=== PATIENT | male | born 1955 | race African-American/Black ===

== ENCOUNTER 2020-01-21 12:33 | Inpatient (IN) | payer OTHER ==
[~2020-01-21 12:33] MED LIST: Dexamethasone 20 MG/5 ML VIAL ONE; Glycopyrrolate 0.2 MG/ML 5 ML SYRINGE ONE; Iopamidol-370 76% 500 ML 1 ML ONE; Lidocaine 1% PF 5 ML VIAL ONE; Ondansetron PF 4 MG/2 ML Vial ONE; PHENYLEPHRINE-NS 100 MCG/ML 10 ML SYRINGE ONE; PROPOFOL 200 MG/20 ML VIAL ONE; Rocuronium Bromide 10 MG/ML (10ML VIAL) ONE; Succinylcholine Chloride 20 MG/ML 10 ml SYRINGE FS ONE
[2020-01-21] MEDS ORDERED: Fentanyl 100 MCG/2 ML VIAL ONE ×4 (12:39→18:44)
[2020-01-21] MEDS ORDERED: Ondansetron PF 4 MG/2 ML Vial ONE (12:41)
--- NOTE | 2020-01-21 12:50 | RAD ---
Exam: Single view of the pelvis HISTORY: Pelvic and hip pain after fall COMPARISON: None FINDINGS: A single view the pelvis shows no evidence of acute fracture or dislocation. Degenerative c hanges are seen in the lumbar spine. No degenerative changes seen in either hip. IMPRESSION: No evidence of acute osseous abnormality.
[2020-01-21 12:51] LABS: #Basophils 0.1 thou/uL (0.0-0.2); #Eosinphils 0.1 thou/uL (0.0-0.7); #Lymphocytes 1.5 thou/uL (1.20-3.40); #Monocytes 0.5 thou/uL (0.11-0.59); #Neutrophils 6.6 thou/uL (1.40-6.50); %Basophils 0.7 % (0.0-1.0); %Eosinophils 1.4 % (0.0-10.0); %Lymphocytes 17.2 % (21.0-51.0); %Monocytes 5.8 % (0.0-10.0); Hemoglobin 13.8 g/dL (14.0-18.0); Mean Corpuscular HGB CONC 34.2 g/dL (32.0-36.0); Mean Corpuscular Hemoglobin 34.9 pg (27.0-31.0); Mean Platelet Volume 7.3 fL (7.4-10.4); Platelet Count 230 thou/uL (130-400); RBC Distribution Width 11.9 % (11.5-14.5); Red Blood Cell (RBC) Count 3.94 mill/uL (4.70-6.10); White Blood Cell (WBC) Count 8.7 thou/uL (4.8-10.8)
--- NOTE | 2020-01-21 12:51 | RAD ---
EXAM: Single view of the chest HISTORY: Chest pain after fall from a bed of a truck COMPARISON: None FINDINGS: Single view of the chest shows a normal sized cardiomediastinal silhouette. There is no tc dence of consolidation, mass, or pleural effusion. The bones are unremarkable IMPRESSION: No evidence of acute cardiopulmonary disease
[2020-01-21 12:57] LABS: INR-International Normal Ratio 1.2; PTT 23.8 sec (22.9-36.1); Prothrombin Time 14.9 sec (12.0-14.7)
--- NOTE | 2020-01-21 13:00 | CT ---
CT BRAIN WITHOUT CONTRAST: Date: 01/21/2020 HISTORY: Level II trauma. Loss of consciousness. Fell from tree. FINDINGS: No evidence of acute infarct, hemorrhage, midline shift, or abnormal extra-axial fluid collections ar e seen. The ventricular size is normal and the basilar cisterns are patent. The bony calvarium is int act. There is opacification of the left posterior ethmoid air cells. The remainder of the visualized paranasal sinuses and mastoid air cells are clear. IMPRESSION: No CT evidence of acute intracranial process. Discussed over the phone with ER physician, Dr. Capps, at 1255 hours. CODE CR.
[2020-01-21 13:07] LABS: ALT (SGPT) 117 U/L (8-55); AST (SGOT) 198 U/L (5-34); Albumin 3.4 g/dL (3.5-5.0); Alkaline Phosphatase 104 U/L (40-110); Anion Gap 14 mmol/L (10-20); BUN (Urea Nitrogen) 15 mg/dL (8.4-25.7); Bilirubin, Total 0.4 mg/dL (0.2-1.2); Calc. Creatinine Clearance 0 mL/min (70-130); Calcium 8.9 mg/dL (7.8-10.44); Carbon Dioxide 18 mmol/L (22-29); Chloride 105 mmol/L (98-107); Estimated GFR-MDRD 59; Globulin 4.2 g/dL (2.4-3.5); Glucose 102 mg/dL (70-105); Potassium 4.1 mmol/L (3.5-5.1); Protein, Total 7.6 g/dL (6.0-8.3); Sodium 133 mmol/L (136-145)
--- NOTE | 2020-01-21 13:15 | CT ---
Exam: CT cervical spine without contrast HISTORY: Trauma. Pain. Level 2 trauma. Patient fell from a tree. COMPARISON: None FINDINGS: No craniocervical dissociation. Appropriate alignment of the lateral masses of C1 and C2. Intact odon toid process Appropriate alignment of the facets. Soft tissue neck structures: No mass, lymphadenopathy or hematoma. No prevertebral soft tissue swelli ng. Upper mediastinum and lung apices: Unremarkable Central spinal canal: Multilevel degenerative change with loss of disc space height, sclerosis and os teophyte formation. Severe loss of disc space height at C3-C4, C5-6 and C6-C7. Moderate severe loss of disc space height at C3-4-C5. Straightening of cervical lordosis may be due to patient position, m uscle spasm or cervical collar. Current study does not assess for ligamentous injury. Moderate to severe central canal stenosis at C3-C4, C4-C5, C5-C6 and moderate central canal stenosis at C6-C7 due to degenerative change. Technique limits evaluation. Vertebral bodies: Cervical spine vertebral body height is maintained. No vertebral body fracture. The re is a fracture involving the right foramen transversarium at C3-4. There is also a fracture involving the junction of the right lamina and spinous process at C4. There also appears be a fractur e involving a right-sided osteophyte along the C4 vertebral body. IMPRESSION: 1. No right C4 foramen transversarium fracture. Right C4 lamina fracture near its junction with the s pinous process. There is a fracture involving osteophyte along the anterior inferior aspect of the C4 vertebral body. 2. Multilevel degenerative changes of the cervical spine with significant central canal stenosis and significant neural foraminal narrowing. Technique limits evaluation. Results of study discussed with Dr. Capps 01/21/2020 at 1:05 PM Code CR
--- NOTE | 2020-01-21 13:15 | CT ---
EXAM: CT face without contrast HISTORY: Fall from tree with facial trauma COMPARISON: None TECHNIQUE: Multiple contiguous axial images were obtained and a CT of the face without contrast. Sagi ttal and coronal reformats were performed. FINDINGS: There are chronic healed fractures of the bilateral nasal bones. No acute facial fractures are identified. There is left facial soft tissue swelling with air in the left facial soft tissues. No radiopaque foreign body is seen. The globes and retrobulbar soft tissues are unremarkable . The visualized paranasal sinuses are well aerated without evidence of opacification. The mastoid air cells are well aerated. Visualized intracranial structures are unremarkable. IMPRESSION: No evidence of facial fracture Dr. Capps notified of findings at 1:13 PM on 01/21/2020.
[2020-01-21] MEDS ORDERED: Dexamethasone 10 MG/ML VIAL ONE (13:26)
--- NOTE | 2020-01-21 13:33 | CT ---
CT THORAX WITH CONTRAST CT ABDOMEN WITH CONTRAST CT PELVIS WITH CONTRAST CT THORACIC SPINE WITH CONTRAST CT LUMBAR SPINE WITH CONTRAST: (Trauma protocol) DATE: 01/21/2020 HISTORY: Trauma to the chest, abdomen, and pelvis: 61-year-old male status post fall from tree. Dr. Melara verbally gave this trauma protocol report to Dr. Capps at 1:30 PM 01/21/2020. TECHNIQUE: IV administration of iodinated contrast media. No oral contrast media. Single phase scans of thorax, abdomen, and pelvis. Sagittal reconstructions of thoracic and lumbar spine. FINDINGS: Lungs: No contusion. Stellate, spiculated moderate size lesion in superior segment of right lower lob e, with extensive air bronchograms. On prior chest CT of 07/11/2013, this was a large cavitating consolidation. Pleura: No pneumothorax or hemothorax. Thoracic aorta: No dissection or rupture. Mediastinum: No hematoma. Abdomen and pelvis: Liver: No laceration Spleen: No laceration Pancreas: No surrounding fluid or fat stranding. Kidneys: No hydronephrosis or laceration. Bladder: No gross evidence of rupture. Kerns catheter present. Abdominal aorta: No dissection or rupture. Small bowel: No dilation. Colon: No adjacent fat stranding. Free air: None. Free fluid: None. Skeleton: Ribs: No grossly displaced acute fracture. Sternum: No grossly displaced acute fracture. Thoracic spine: No acute compression fracture. Lumbar spine: No acute compression fracture. Pelvis: No grossly displaced acute fracture. No dislocation. IMPRESSION: 1. No evidence of acute traumatic injury within the thorax, abdomen, or pelvis. 2. Moderately large pulmonary scar in superior segment of right lower lobe, representing sequela of p rior active tuberculosis or cavitating pneumonia (prior cavitating consolidation) in that location.
--- NOTE | 2020-01-21 13:47 | CT ---
Exam: CT angiogram of the neck HISTORY: C4 fracture at the level of foramen transversarium. Patient is unable to move extremities. COMPARISON: None Correlation: CT cervical spine 01/21/2020 TECHNIQUE: CT angiogram the neck is performed in the axial plane. Three-dimensional reformatted image s are submitted for interpretation. FINDINGS: No pathologic enhancement of the brain parenchyma. There is evidence of multilevel periodontal disease. Adequate aeration of the sinuses and mastoid air cells Soft tissue neck structures: Aerodigestive tract is patent. No mucosal abnormality. No obvious masses in the oral cavity. Midline fatty raphae of the tongue is preserved. Epiglottis is normal caliber. Preepiglottic fat is preserved. Symmetric attenuation the paraspinal muscles. Symmetric attenuation of the salivary glands. Appropriate attenuation of the thyroid gland No evidence of lymphadenopathy by size criteria. There is a small amount of edema anterior to the C3, C4 and C5 levels with associated paravertebral s oft tissues. On the current examination there does appear to be severe central canal stenosis at the C3-C4 level. There does appear to be increased soft tissue density along the anterior epidural space at C3, C4, and C5 which may in part be due to disc material. However, the possibility of the anterior epidural h ematoma cannot be excluded. There is incompletely evaluated spiculated opacity in the right upper lobe measuring 2.[address] ANGIOGRAM: Aorta: Appropriate enhancement and luminal diameter Right carotid: Appropriate enhancement and luminal diameter of the carotid artery origin, innominate artery,, common carotid artery, carotid bifurcation and internal carotid artery. Mild narrowing involving the carotid bifurcation and proximal internal carotid artery due to calcified and noncalcif ied plaque. Left carotid: Appropriate enhancement and luminal diameter of the origin of the left carotid artery, common carotid artery, carotid bifurcation and internal carotid artery. Subclavian arteries: Patent and symmetric Vertebral arteries: Left vertebral artery is patent throughout its course in the neck. There is appro priate enhancement and luminal diameter of the right vertebral artery is the level the right foramen transversarium. Distal foramen transversarium, there is lack of contrast opacification compat ible with thrombosis secondary to dissection. There is recanalization of the right vertebral artery as it enters the foramen magnum, likely due to collateral flow. IMPRESSION: 1. Right vertebral artery dissection at the level of fracture. There is thrombosis the lack of contra st opacification throughout the cervical right vertebral artery starting at the C4 foramen transversarium. 2. Significant central canal stenosis at C3-C4, C4-C5 and C5-C6 which may in part be due to degenerat manny change. However, anterior epidural hematoma cannot be excluded. There is severe central canal stenosis at C4-C5 C5-C6. There is prevertebral soft tissue swelling C3-C5. Results of the study discussed with Dr. Capps 01/21/2020 at 1:46 PM Code CR Transcribed Date/Time: 01/21/2020 1:59 PM
[2020-01-21] MEDS ORDERED: Adacel (T-DAP) 0.5 ML SYRINGE ONE (13:56)
[2020-01-21 14:07] LABS: Bilirubin Negative (Negative); Blood, Urine Negative (Negative); Clarity Clear (Clear); Glucose, Urine (Dipstick) Normal (Negative); Ketone, Urine Negative (Negative); Leukocyte Negative Leu/uL (Negative); Nitrite Negative (Negative); Protein, Urine (Dipstick) Negative (Neg-Trace); Specific Gravity, Urine 1.025 (1.002-1.036); Urobilinogen Normal mg/dL (Less than 2); pH, Urine 5.5 (5.0-9.0)
[2020-01-21 14:26] LABS: Amphetamine Not Detected (NotDetected); Barbiturates Screen Not Detected (NotDetected); Benzodiazepine Screen Not Detected (NotDetected); Cocaine Metabolite Screen Detected (NotDetected); Medtox Control Line Valid? VALID (VALID); Medtox Reader # READER 4; Methadone Not Detected (NotDetected); Methamphetamine Not Detected (NotDetected); Opiate Screen Not Detected (NotDetected); Oxycodone Screen Not Detected (NotDetected); Phencyclidine (PCP) Not Detected (NotDetected); THC/Cannabinoid Screen Not Detected (NotDetected); Tricyclic Screen Detected (NotDetected)
--- NOTE | 2020-01-21 15:27 | MRI ---
Exam: MRI cervical spine without contrast HISTORY: Recent fall. Patient is unable to move his extremities.. COMPARISON: None Correlation: CT cervical spine 01/21/2020; CT angiogram of the neck 01/21/2020 FINDINGS: There is T1 marrow signal hypointensity at C4 with subtle T2 hyperintensity that suggests edema seco ndary to fracture. There is intrinsic T1 and T2 hyperintensity at C5, superior endplate of C6 and C7 likely representing normal marrow. Remaining cervical and upper thoracic vertebral body marrow sig nal intensity is hypointense without significant associated STIR hyperintensity. Correlate for anemia or a marrow infiltrative process. There is prevertebral soft tissue swelling from C2 through C 7. There is T2 and STIR hyperintensity with edematous changes involving the left paraspinal muscles/left neck as well as the posterior midline paraspinal soft tissues. There is evidence of liga mentous injury involving the intraspinous ligaments at C2-C3, C3-C4, C4-C5 and C5-C6. There is abnormal T2 and STIR hyperintensity involving the cervical cord starting at the mid C3 level and extending inferiorly to the inferior aspect of C5. There is a small focus of T2 hyperintensity in the cervical cord at the C4 level (sagittal images 6, series 3 and series 5). On the axial gradien t echo sequence there is associated hypointensity favoring intramedullary hemorrhage. In the anterior epidural space, there is hypointensity at C3, C4, C5 suggesting epidural hematoma/blo od. C2-C3: Broad-based disc bulge. Mild central canal stenosis. Neural foramina are patent. C3-C4: Desiccation with severe loss of disc space height. Broad-based disc osteophyte complex and epi dural hematoma result in severe central canal stenosis. Moderate to severe bilateral neural foraminal narrowing. C4-C5: Broad-based disc bulge, epidural hematoma result in severe central canal stenosis. Severe bila teral neural foraminal narrowing. C5-C6: Broad-based disc osteophyte complex and epidural hematoma result in moderate to severe central canal stenosis. Severe bilateral neural foraminal narrowing. C6-C7: Desiccation with mild loss of disc space height. Broad-based disc osteophyte complex results i n mild central canal stenosis. Moderate to severe bilateral neural foraminal narrowing. C7-T1: Desiccation without severe loss of disc space height. There is a left paracentral disc herniat ion. Mild central canal stenosis. Moderate bilateral neural foraminal narrowing. IMPRESSION: 1. Extensive prevertebral edema and swelling from C2 through C7. 2. Anterior epidural hematoma from C3 through C5. 3. Severe central canal stenosis at C3-C4 and C4-C5 secondary to broad-based disc bulge, epidural hem atoma. 4. Long segment edema involving the cervical cord from C3 through C6. There is a small focus of intra medullary hemorrhage at C4. 5. Posttraumatic changes involving the left neck as well as the posterior midline paraspinal musculat ure. There is evidence of ligamentous injury as described above. Transcribed Date/Time: 01/21/2020 3:38 PM
--- NOTE | 2020-01-21 15:32 | MRI ---
MRI BRAIN WITHOUT CONTRAST: Date: 01/21/2020 HISTORY: Cervical spine fracture, fall, paralysis. FINDINGS: Correlation is made with the CT scan from same date. No restricted diffusion is seen. No evidence of infarct, hemorrhage, midline shift, or abnormal extra -axial fluid collections are noted. The ventricular size is appropriate and the basilar cisterns are patent. IMPRESSION: No evidence of acute intracranial process. POS: AH
[2020-01-21] MEDS ORDERED: Bacitracin Zinc Ointment 30 gm TUBE ONE (15:43)
[2020-01-21] MEDS ORDERED: Sodium Chloride 0.9% 40 ML ONE (15:57)
[2020-01-21] MEDS ORDERED: Thrombin 5000 UNITS/5 ML VIAL ONE (16:02)
[2020-01-21] MEDS ORDERED: Phenylephrine 10 MG/ML VIAL ONE (16:30)
--- NOTE | 2020-01-21 16:49 | HP ---
REQUESTING PHYSICIAN: Dr. Capps. ATTENDING SURGEON: Dr. Whitt. CONSULTATIONS: Neurosurgery, Dr. Maldonado. HISTORY OF PRESENT ILLNESS: The patient is a 64-year-old man who was brought to the emergency department as a level 2 trauma activation after reportedly falling from a tree while cutting limbs. The patient fell approximately 6 to 10 feet landing reportedly on his head and neck. The patient reportedly could not move his arms or legs, was conscious by the time the EMS was brought there. He was evaluated and examined in the emergency department and noted to have markedly decreased movement in his lower extremities, and no movement or sensation in his upper extremities. The patient underwent further evaluation with MRI and was noted to have severe spinal canal stenosis and epidural hematoma, and the plan is to take him urgently to the emergency room for correction to the operating room for decompression. ALLERGIES: NONE. CURRENT MEDICATIONS: Unknown. PAST MEDICAL HISTORY: Hypertension. PAST SURGICAL HISTORY: Unknown. REVIEW OF SYSTEMS: Ten-point review of systems is unknown. The patient at the time of interview was altered. Drug screen is positive for cocaine and tricyclic antidepressants, which is contributing also to his postconcussive state. We have not been able to contact family members at this time. PHYSICAL EXAMINATION: VITAL SIGNS: Blood pressure 115/79, heart rate 92, respirations 21, oxygen saturation is 99% on 2 L via nasal cannula, temperature is 98.0. GENERAL: The patient is lying in the emergency department. He is awake, confused, but does attempt to follow commands. Radha Coma Scale is 13, utilizing his facial movements as muscular response as the patient is still having quadriplegia. HEENT: Head is normocephalic with small abrasion on the forehead. Face shows a laceration to the left cheek of approximately 3 cm. There is also noted to be approximately 3 cm laceration to the left submental area. Pupils are PERRLA bilateral. Eyes; extraocular movements are intact. Nose shows some dried crusting blood in the left naris. Ear canals are clear bilaterally. NECK: Tender to the midline, C4 to C6. The trachea is midline. There is no JVD. The patient's pre-hospital collar has been exchanged for an Porum collar. LUNGS: Clear to auscultation with moderate inspiratory and expiratory effort. HEART: Regular rate and rhythm. ABDOMEN: Soft and nontender with hypoactive bowel sounds. PELVIS: Stable. EXTREMITIES: Show no external markers of trauma with the exception of contusions to bilateral knees. The long bones feel grossly stable. BACK: Atraumatic and nontender. RECTAL: The patient had rectal tone without sensation. LABORATORY FINDINGS: White blood cell count 8.7, hemoglobin 13.8, hematocrit 40.2, platelets 230. Sodium 133, potassium 4.1, chloride 105, CO2 is 18, BUN 15, creatinine 1.26, glucose 102. Total bilirubin 0.4, AST 198, ALT 117, alkaline phosphatase 104. Urinalysis is unremarkable. INR 1.2. Urine drug screen is positive for tricyclics and cocaine. RADIOGRAPHIC REPORTS: AP chest x-ray shows no evidence of acute cardiopulmonary disease. AP pelvis shows no evidence of acute osseous abnormality. CT of the brain without contrast shows no CT evidence of acute intracranial process. CT of the facial bones without contrast shows no evidence of facial fracture. CT of the C-spine shows a right C4 lamina fracture near its junction with the spinous process. There is a fracture involving osteophyte along the anterior inferior aspect of C4 vertebrae. Multilevel degenerative changes of the cervical spine with significant central canal stenosis and significant neural foraminal narrowing. CT of the neck, chest, abdomen, and pelvis with IV contrast. Portion exam of the CTA of C-spine shows a right vertebral artery dissection at the level of fracture. There is thrombosis and lack of contrast opacification throughout the cervical right vertebral artery starting at the C4 foramen transversarium. Significant central canal stenosis at C3-C4, C4-C5, and C5-C6, which may in part be due to degenerative change. However, anterior epidural hematoma cannot be excluded. There is severe central canal stenosis at C4-C5 and C5-C6. There is prevertebral soft tissue swelling at C3 through C5. The chest, abdomen, and pelvis showed no evidence of acute traumatic injury within the thorax, abdomen, and pelvis. ASSESSMENT: 1. Status post fall from tree. 2. 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 3. Right vertebral artery occlusion/transection. 4. 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 PLAN: Plan will be to take the patient urgently to the operating room. Postoperatively, he will be moved to the IMCU and possibly the critical care unit depending on his surgical outcome. The patient will have pulmonary toilet and gastritis and mechanical VTE prophylaxis. He did receive 2 g of Ancef and tetanus updated while in the emergency department. The evaluation, examination, laboratory, and radiographic findings will be discussed with Dr. Whitt after this dictation. Job ID: [id number] MTDD
[2020-01-21] MEDS ORDERED: Dexamethasone 4 mg/ml Vial SLOW IVP SCH (18:00)
[2020-01-21] MEDS ORDERED: Ondansetron HCl/PF 4 MG/2 ML Vial IVP PRN (18:25)
[2020-01-21] MEDS ORDERED: Ondansetron ODT 4 MG TAB PO PRN (18:57)
[2020-01-21] MEDS ORDERED: Morphine 2 MG/ML VIAL SLOW IVP PRN (18:57)
[2020-01-21] MEDS ORDERED: Dextrose 5% in Water 1,000 ML IV PRN (18:57)
[2020-01-21] MEDS ORDERED: Dextrose 50% Abboject 50 ML SYRINGE SLOW IVP PRN (18:57)
[2020-01-21] MEDS: Sodium Chloride 0.9% 1,000 ML IV SCH (20:52)
[2020-01-21] MEDS ORDERED: Famotidine/PF 20 mg/2ml Vial SLOW IVP SCH (21:00)
--- NOTE | 2020-01-21 21:01 | CON ---
DATE OF CONSULTATION: 01/21/2020 HISTORY OF PRESENT ILLNESS: The patient is a 64-year-old male, brought into the emergency room as a level two trauma following a fall from a tree. Following the fall, which occurred while attempting to cut a tree limb, he had sudden loss of sensation and motor function to both the upper and lower extremities. He was brought by EMS on backboard, C-collar to our ER, where he underwent evaluation by both the ER and the trauma team as well as myself. A noncontrast CT of the head , cervical spine, chest, abdomen, and pelvis as well as CTA imaging of the neck were obtained. CT of the cervical spine was notable for a right-sided lamina fracture at C4 as well as a right-sided transverse foramen fracture. CTA was consistent with vertebral artery dissection at the right C4 foramen. CT of the brain was negative. CT of the chest, abdomen, and pelvis was negative for acute injuries. On initial ER exam, the patient was somewhat confused. He was able to tell us his name, but not the date or location. He denies sensation from approximately the C6 dermatome distal. He does withdraw to pain over the lower extremities, no withdrawal of the upper extremities. He had positive rectal tone. His vital signs are stable throughout his ER visit. He was treated with 10 mg of Decadron in the emergency department. PAST MEDICAL HISTORY: Notable for pulmonary disease, prior history of pneumonia , and hepatitis C. PAST SURGICAL HISTORY: Tonsillectomy. SOCIAL HISTORY: Per records, he is noted to have a history of polysubstance abuse. Positive tobacco abuse and is a daily drinker approximately five drinks per day. ALLERGIES: Unknown CURRENT MEDICATIONS: Unable to assess current medications due to the patient's condition. PHYSICAL EXAMINATION: VITAL SIGNS: Stable. HEENT: Head; he has some abrasions and laceration along the upper lip and the left cheek. Eyes, PERRLA. Extraocular movements intact. ENT; pink, intact. No obvious trauma. He has a normal, but quiet voice. NECK: He is currently immobilized in an Offerman collar. CARDIAC: Regular rate and rhythm. PULMONARY: Symmetric chest expansion. No evidence of dyspnea. MUSCULOSKELETAL: There are some scattered abrasions to the upper and lower extremities, but no obvious deformities. Peripheral pulses are symmetric and intact. He has loss of sensation in both the upper and lower extremities. He does have problems with withdrawal to the lower extremities, but not to the upper. NEUROLOGIC: He is oriented to person, not to place or time. He has a GCS 14. Loss of sensation and motor function to both the upper and lower extremities is noted in the musculoskeletal exam. Positive rectal tone. ASSESSMENT AND PLAN: This is a 64-year-old male, who had an unfortunate fall from a tree approximately 8 feet in height, who has had sudden loss of sensation and motor function to both of the upper and lower extremities. His CT findings have been notable for a C4 right-sided lamina and transverse foramen fracture with associated right-sided vertebral artery dissection at the level of the C4 foramen. I have started him on Decadron in the emergency department, we will continue this for q.6. We will also obtain additional MRI imaging of the brain and cervical spine for additional evaluation. He has significant degenerative changes throughout the cervical spine and this may represent underlying cord contusion. We will follow with neurologic exam closely. I have discussed this plan with Dr. Maldonado and with the Trauma Service, who are in agreement. 50 min pt encounter where > 50% time was spent in face to face visit. Remainder of encounter included review of records, imaging and formulation of plan. Job ID: [id number] MTDD
[2020-01-21] MEDS: Morphine 4 MG/ML VIAL SLOW IVP PRN (21:54)
[2020-01-21] MEDS ORDERED: Acetaminophen 325 MG TAB PO PRN (21:56)
[2020-01-21] MEDS ORDERED: CEFAZOLIN 1 GM VIAL SLOW IVP SCH (22:00)
[2020-01-21] MEDS: Famotidine/PF 20 mg/2ml Vial SLOW IVP SCH (22:02)
[2020-01-21] MEDS: CEFAZOLIN 1 GM in Sodium Chloride 0.9% 100 ML IVPB SCH (22:02)
[2020-01-21 22:16] VITALS: BMI 22.3
--- NOTE | 2020-01-21 23:02 | PRG ---
DATE OF SERVICE: 01/21/2020 SUBJECTIVE: The patient is seen and examined. I agree with My Horowitz's evaluation on 01/21/2020. The patient is a 64-year-old male, who fell from a tree earlier today. He sustained immediate loss of sensory and motor function. OBJECTIVE: On exam, he has essentially no sensory function below C5. There is some withdrawal in his lower extremities, which is fairly subtle. Otherwise, he is essentially motor complete from C5 down. MRI and CT revealed C4 fracture of the lamina and right-sided anterior vertebral body as well as a right vertebral dissection at this level. The MRI suggests severe spinal stenosis from C3 to C6. There is significant T2 signal within the cord. IMPRESSION AND PLAN: The patient is sensory complete and motor near-complete injury related to a cervical trauma. I am recommending C3-C6 posterior laminectomy for the purpose of decompression. I have a high index of suspicion that the C4-5 level will be unstable and require instrumentation. I discussed the indication, risks, benefits, and alternatives with the patient, who expressed his understanding and wished to proceed. I have a low optimism that surgery will restore neurologic function, but do feel it is our best chance of doing so. We will also institute Decadron. Job ID: [id number]
[2020-01-21] MEDS: traMADol HCl 50 MG TAB PO SCH (23:39)
[2020-01-21] MEDS: Dexamethasone 4 mg/ml Vial SLOW IVP SCH (23:40)
--- NOTE | 2020-01-22 00:40 | OP ---
DATE OF PROCEDURE: 01/21/2020 [employer] MA[employer]: My Horowitz PA-C PROCEDURES PERFORMED: Posterior cervical laminectomy C3 through C6, posterolateral arthrodesis C4-C5, lateral mass screw instrumentation, and demineralized bone matrix and local slow local morselized autograft, C4-C5. DESCRIPTION OF PROCEDURE: The patient was brought to the operating room and intubated. He was rolled in a prone position on gel-filled chest rolls with the head fixed in a [place] housekeeper head in a neutral position. An incision was made exposing C3 through C6 and the level was confirmed by x-ray. We performed complete C6, complete C5, complete C4, and complete C3 laminectomies, completely decompressed the spinal cord. At C4-C5, the facet joint seemed widened and loose and the C4 laminar fracture was visible extending through the lamina. I elected to perform C4-C5 stabilization [address] lateral mass screws bilaterally at C4 and C5, connected by rods secured by nuts, which were final tightened. The wound was then extensively irrigated MAC hemostasis was secured. A combination of demineralized bone matrix and local morselized autograft was laid over the lamina in the posterolateral surfaces of C4-C5 for the purpose of arthrodesis. Vancomycin powder was applied and the wound was closed in anatomic layers over drain. Job ID: [id number]
--- NOTE | 2020-01-22 00:54 | PRG ---
DATE OF SERVICE: 01/21/2020 SUBJECTIVE: Mr. Galvan is a 64-year-old male, status post fall from a tree. 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 He has loss of motor function and sensory function on 4 extremities. The patient underwent urgent C3-C6 posterior laminectomy for the purpose of decompression with Dr. Maldonado. The patient tolerated the procedure well. Postop, the patient reports his pain is well controlled. He has developed no fever or shortness of breath. However, his motor function and sensory function have not yet returned. His vital signs have been stable. OBJECTIVE: GENERAL: Currently, the patient is lying in bed comfortably with no acute respiratory distress. VITAL SIGNS: Stable. LUNGS: Clear bilaterally. HEART: Regular rate and rhythm. ABDOMEN: Soft, nondistended. EXTREMITIES: Motor function on four extremity is 0/6. He can feel sensory of the bilateral upper extremity, but bilateral lower extremity sensory impaired. NEUROLOGY: GCS 15. ASSESSMENT: 1. Status post fall from a tree. 2. 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 3. Status post posterior C3-C6 laminectomy decompression, postop day 0. 4. Right vertebral artery occlusion transection. 5. 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 PLAN: We will continue supportive care. Continue pain control. Continue Decadron for inflammation. The patient will need to work with physical therapy and occupation therapy. Continue nonpharmacological DVT prophylaxis, gastritis prophylaxis. Job ID: [id number]
[2020-01-22] MEDS: Morphine 4 MG/ML VIAL SLOW IVP PRN ×5 (01:06→22:55)
[2020-01-22 04:02] LABS: #Monocytes 0.2 thou/uL (0.11-0.59); %Eosinophils 0.1 % (0.0-10.0); %Lymphocytes 7.8 % (21.0-51.0); %Monocytes 1.8 % (0.0-10.0); %Neutrophils 90.3 % (42.0-75.0); Hemoglobin 12.3 g/dL (14.0-18.0); Mean Corpuscular HGB CONC 33.8 g/dL (32.0-36.0); Mean Corpuscular Hemoglobin 34.9 pg (27.0-31.0); Mean Platelet Volume 7.5 fL (7.4-10.4); Platelet Count 205 thou/uL (130-400); RBC Distribution Width 11.9 % (11.5-14.5); Red Blood Cell (RBC) Count 3.53 mill/uL (4.70-6.10); White Blood Cell (WBC) Count 12.2 thou/uL (4.8-10.8)
[2020-01-22 04:29] LABS: Anion Gap 9 mmol/L (10-20); BUN (Urea Nitrogen) 13 mg/dL (8.4-25.7); Calc. Creatinine Clearance 88 mL/min (70-130); Carbon Dioxide 22 mmol/L (23-31); Chloride 106 mmol/L (98-107); Estimated GFR-MDRD Greater than 90; Glucose 128 mg/dL (80-115); Potassium 4.3 mmol/L (3.5-5.1); Sodium 133 mmol/L (136-145)
[2020-01-22] MEDS: Sodium Chloride 0.9% 1,000 ML IV SCH ×3 (05:03→22:56)
[2020-01-22] MEDS: traMADol HCl 50 MG TAB PO SCH ×4 (05:04→23:29)
[2020-01-22] MEDS: Dexamethasone 4 mg/ml Vial SLOW IVP SCH ×4 (05:05→22:59)
[2020-01-22] MEDS: CEFAZOLIN 1 GM in Sodium Chloride 0.9% 100 ML IVPB SCH ×3 (05:11→21:02)
[2020-01-22] MEDS: Gabapentin 300 MG CAP PO SCH ×3 (09:02→21:02)
[2020-01-22] MEDS: Famotidine/PF 20 mg/2ml Vial SLOW IVP SCH ×2 (09:02→20:59)
--- NOTE | 2020-01-22 09:39 | PRG ---
DATE OF SERVICE: 01/22/2020 SUBJECTIVE: The patient is on postoperative day #1, status post C3-C6 laminectomy and C4-C5 fusion. Yesterday, he suffered a traumatic event after a fall from a tree approximately 6 to 8 feet of height, where he had acute and sudden loss of motor and sensation from approximately the C5 dermatome down. He was found to have significant cord contusion and underlying cervical stenosis from C3-C6. Also suffered a R vert dissection. Since the surgery, he has had little change in his exam. I visited the patient at the bedside and he is complaining of some discomfort to his neck. We discussed this situation. However, he appears to have difficulty comprehending recent events. On exam this morning, he is awake and alert. He is able to tell me his name and tell me that he is having some discomfort in his neck. He repeats similiar question about why he cant move his extremities despite explanation. He continues to have no sensory function below C5. He does have some withdrawal to the lower extremities, but none is present to the upper extremities. His GAB drain is in place and had approximately 95 mL out last night. There was a small amount of serosanguineous fluid in the bulb. The patient has had no change in his sensory or motor exam at this time. We will continue his IV steroids and Decadron 4 q.6 hours. Will leave his GAB drain in place. Ok to begin DVT ppx. I will check and US of the legs tomorrow. Overall, his prognosis is poor for significant improvement in his neurologic function. He will require PT, OT , and rehab placement. These have been initiated by the Trauma Service. We will continue to follow along closely. Job ID: [id number] MTDD
--- NOTE | 2020-01-22 10:40 | PRG ---
DATE OF SERVICE: 01/21/2020 Mr. Galvan is alert and appropriate. As best I can tell, there has been no meaningful improvement in his motor or sensory exam and he remains with a dense quadriplegia. His pain control is satisfactory. IMPRESSION AND PLAN: We will start deep venous thrombosis prophylaxis and check an ultrasound of the legs tomorrow. We will begin rehab planning. Job ID: [id number]
[2020-01-22] MEDS ORDERED: Senokot 8.6 MG TAB PO PRN (13:53)
[2020-01-22 13:57] LABS: ALT (SGPT) 98 U/L (8-55); AST (SGOT) 153 U/L (5-34); Alkaline Phosphatase 92 U/L (40-110); Bilirubin, Direct 0.3 mg/dL (0.1-0.3); Bilirubin, Total 0.5 mg/dL (0.2-1.2); Protein, Total 6.7 g/dL (5.8-8.1)
--- NOTE | 2020-01-22 16:40 | PRG ---
DATE OF SERVICE: 01/22/2020 SUBJECTIVE: The patient is currently on the intermediate care unit. He is hospital day 2 status post fall from a tree, in which he sustained cervical spine injury resulting in dense quadriplegia. He was taken emergently to the operating room for decompression. He tolerated the procedure well this morning. There were no reports of issues overnight. His pain is controlled. Unfortunately, his exam has not changed much, although it is still early in his process. PHYSICAL EXAMINATION: VITAL SIGNS: Temperature is 98.2, heart rate 66, blood pressure 106/70, respirations 19, oxygen saturation 94% on 2 L via nasal cannula. GENERAL: The patient is resting comfortably. He is sitting upright in bed. He is awake, confused as to what happened, but is able to recall some details and complains of pain in his neck and shoulder. HEENT: Unremarkable. NECK: The patient has been allowed to have his [place] collar off. Postoperatively, he does have a drain in place posteriorly. LUNGS: Clear to auscultation with moderate inspiratory and expiratory effort consistent with his cord injury. HEART: Regular rate and rhythm. ABDOMEN: Soft, nontender, with hypoactive bowel sounds. EXTREMITIES: Again have dense quadriplegia noted, especially C5 down. LABORATORY FINDINGS: White blood cell count 12.2, hemoglobin 12.3, hematocrit 36.4, platelets 205. Sodium 133, potassium 4.3, chloride 106, CO2 of 22, BUN 13, creatinine 0.90, glucose 128. There are no radiographs reviewed this morning. ASSESSMENT AND PLAN: 1. Status post fall from tree approximately 6 to 8 feet. 2. Right vertebral artery dissection. 3. Status post C3 through C6 laminectomy and C4-C5 fusion. 4. Quadriplegia. Plan will be to continue supportive care, IV Decadron per Neurosurgery. Begin physical and occupational therapy. We will do swallow eval by Speech today as the patient states that he is having difficulty swallowing, but he is easily controlling his secretions. Neurosurgery has given the okay for chemical VTE prophylaxis, which we will start today. We also plan on bilateral lower extremity ultrasound tomorrow. The patient was examined with Dr. Whitt during rounds this morning. Job ID: [id number]
--- NOTE | 2020-01-22 16:48 | PDOC.BPN ---
- Brief Progress Note Date of service: 1929January 21, 2020 I have discussed the patient with the advanced practice provider and agree with the findings and plan of care annotated in their note dated January 21, 2020. I have examined the patient and reviewed the pertinent radiographic and laboratory findings. Briefly, this is a 64-year-old male who presented as a level 2 trauma after falling from a tree while operating a chainsaw. He sustained a laceration to the left side of his face as well as C-spine injury. He was noted to have neuro deficits below C4. He was emergently taken to the operating room by neurosurgery where he underwent C3-C6 laminectomy and fusion of C4-C5. He was also noted to have a dissection of his right vertebral artery at the level of the C4 cardona. PLAN: To undergo laminectomy and fusion by neurosurgery.
[2020-01-22] MEDS: diphenhydrAMINE 50 MG/ML VIAL IVP PRN (21:04)
--- NOTE | 2020-01-23 00:42 | PDOC.BPN ---
- Brief Progress Note DATE OF SERVICE: 01/22/2020 SUBJECTIVE: Mr. Galvan is a 64-year-old male, status post fall from a tree. 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 He has loss of motor function and sensory function on 4 extremities. The patient underwent urgent C3-C6 posterior laminectomy for the purpose of decompression with Dr. Maldonado. The patient tolerated the procedure well. Postop, the patient reports his pain is well controlled. He has developed no fever or shortness of breath. However, his motor function and sensory function have not yet returned. His vital signs have been stable. OBJECTIVE: GENERAL: Currently, the patient is lying in bed comfortably with no acute respiratory distress. VITAL SIGNS: Stable. LUNGS: Clear bilaterally. HEART: Regular rate and rhythm. ABDOMEN: Soft, nondistended. EXTREMITIES: Motor function on four extremity is 0/6. He can feel sensory of the bilateral upper extremity, but bilateral lower extremity sensory impaired. NEUROLOGY: GCS 15. ASSESSMENT: 1. Status post fall from a tree. 2. 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 3. Status post posterior C3-C6 laminectomy decompression, postop day 0. 4. Right vertebral artery occlusion transection non op. 5. 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 PLAN: We will continue supportive care. Continue pain control. Continue Decadron for inflammation. The patient will need to work with physical therapy and occupation therapy. Continue nonpharmacological DVT prophylaxis, gastritis prophylaxis.
[2020-01-23] MEDS: Morphine 4 MG/ML VIAL SLOW IVP PRN ×5 (04:10→22:43)
[2020-01-23] MEDS: Dexamethasone 4 mg/ml Vial SLOW IVP SCH ×4 (05:02→20:16)
[2020-01-23] MEDS: CEFAZOLIN 1 GM in Sodium Chloride 0.9% 100 ML IVPB SCH (05:02)
[2020-01-23] MEDS: Sodium Chloride 0.9% 1,000 ML IV SCH ×2 (05:03→18:13)
[2020-01-23] MEDS: traMADol HCl 50 MG TAB PO SCH ×3 (05:36→18:28)
[2020-01-23 08:28] LABS: #Monocytes 0.4 thou/uL (0.11-0.59); #Neutrophils 11.6 thou/uL (1.40-6.50); %Basophils 0.3 % (0.0-1.0); %Lymphocytes 7.7 % (21.0-51.0); %Monocytes 2.8 % (0.0-10.0); %Neutrophils 89.2 % (42.0-75.0); Hemoglobin 12.5 g/dL (14.0-18.0); Mean Corpuscular HGB CONC 33.3 g/dL (32.0-36.0); Mean Corpuscular Hemoglobin 34.5 pg (27.0-31.0); Mean Platelet Volume 7.8 fL (7.4-10.4); Platelet Count 188 thou/uL (130-400); RBC Distribution Width 11.9 % (11.5-14.5); Red Blood Cell (RBC) Count 3.61 mill/uL (4.70-6.10)
--- NOTE | 2020-01-23 08:30 | ULT ---
DOPPLER VENOUS ULTRASOUND OF BOTH LOWER EXTREMITIES: INDICATION: History of immobility. TECHNIQUE: Murguia scale, color Doppler, and vascular duplex with spectral analysis was performed of the deep venou s structures of both lower extremities. The common femoral vein, superficial femoral vein, popliteal vein, posterior tibial vein, proximal greater saphenous, and proximal profunda veins were assessed bi laterally. FINDINGS: There is normal compression, flow, and augmentation seen within the deep venous structures of both lo wer extremities. IMPRESSION: No evidence of deep vein thrombosis within both lower extremities. POS: BH
[2020-01-23 08:50] LABS: Anion Gap 10 mmol/L (10-20); BUN (Urea Nitrogen) 13 mg/dL (8.4-25.7); Calc. Creatinine Clearance 102 mL/min (70-130); Calcium 7.8 mg/dL (7.8-10.44); Carbon Dioxide 21 mmol/L (23-31); Chloride 108 mmol/L (98-107); Estimated GFR-MDRD Greater than 90; Glucose 111 mg/dL (80-115); Magnesium 1.9 mg/dL (1.6-2.6); Phosphorus 2.3 mg/dL (2.3-4.7); Sodium 135 mmol/L (136-145)
[2020-01-23] MEDS: Enoxaparin Sodium 40 MG/0.4 ML SYRINGE SC SCH (08:56)
[2020-01-23] MEDS: Gabapentin 300 MG CAP PO SCH ×3 (09:00→20:17)
[2020-01-23] MEDS: Famotidine/PF 20 mg/2ml Vial SLOW IVP SCH ×2 (09:01→20:16)
--- NOTE | 2020-01-23 09:28 | PRG ---
DATE OF SERVICE: 01/23/2020 SUBJECTIVE: The patient continues to have no significant change in his neurologic exam. His pain appears to be better controlled this morning. He appears to be in no acute distress. Nurses did have some concern about his swallowing and inability to produce a strong cough. Therefore, he was evaluated by Speech, who felt that he was unsafe for any solids at this time. He has been cleared for ice chips. OBJECTIVE: On exam today, his vital signs are stable. He has been afebrile overnight. His GAB drain had a very minimal amount overnight approximately 5 mL. His incision is clean, dry, and intact. He has no sensation from approximately the C5 level down. He withdraw briskly over the lower extremities. He feels some pressure sensation in the upper extremities with pain. ASSESSMENT AND PLAN: I will go ahead and remove his GAB drain and discontinue his IV Ancef. I will also begin to trend his Decadron tapered over the next several days. He will continue to need PT, OT, and eventually rehab placement. If his swallowing does not improve, he may require placement of a PEG. Job ID: [id number]
[2020-01-23] MEDS: ceFAZolin 1 GM/D5W 1 GM in Premix Bag 1 BAG IVPB SCH ×2 (14:58→22:33)
[2020-01-23] MEDS ORDERED: Dexamethasone 4 mg/ml Vial SLOW IVP SCH (15:00)
--- NOTE | 2020-01-23 16:50 | OP ---
DATE OF PROCEDURE: 01/21/2020 PROCEDURE PERFORMED: Laceration repair of the left cheek and chin. INDICATION: Trauma. PREPROCEDURE DIAGNOSIS: Facial lacerations x2. POSTPROCEDURE DIAGNOSIS: Repaired lacerations. DESCRIPTION OF PROCEDURE: The area was prepped and draped in sterile fashion. It was cleansed using Betadine prep. The patient was already under general anesthesia from the surgical procedure. The wounds were copiously irrigated with normal saline. A 5-0 Prolene interrupted sutures were placed along each of the incisions. There was very minimal blood loss. A dressing was applied to the area. The patient tolerated the procedure well without any complications. Job ID: [id number]
--- NOTE | 2020-01-23 17:48 | PRG ---
DATE OF SERVICE: 01/23/2020 HISTORY OF PRESENT ILLNESS: The patient is hospital day 3, status post fall from a tree, in which, he sustained a cervical spine injury resulting in dense quadriplegia. He underwent operative intervention for decompression, which he tolerated. Unfortunately, he has had minimal improvement from neurological standpoint of his extremities. He had no issues overnight. He reports that his pain is controlled and he is attempting to work with Physical and Occupational Therapy. PHYSICAL EXAMINATION: VITAL SIGNS: Temperature is 97.4, heart rate 62, blood pressure 143/83, respirations 24, oxygen saturation is 98% on room air. GENERAL: The patient is resting comfortably in bed. He is awake, alert, and responsive. He still has some confusion and is definitely impulsive. LUNGS: Clear to auscultation with moderate inspiratory and expiratory effort. HEART: Regular rate and rhythm. ABDOMEN: Soft, nontender, with hypoactive bowel sounds. EXTREMITIES: Again show quadriplegia. The patient does have some spastic bilateral lower extremity movement. It did appear that he had . LABORATORY FINDINGS: White blood cell count 13.0, hemoglobin 12.5, hematocrit 37.4, platelets 188. Sodium 135, potassium 4.0, chloride 108, CO2 of 21, BUN 13, creatinine 0.77, glucose 111, magnesium 1.9, phosphorus 2.3. Radiograph this morning, venous ultrasound of bilateral lower extremities show no evidence of deep vein thrombosis within both lower extremities. ASSESSMENT: 1. Status post fall from tree approximately 6 to 8 feet. 2. Right vertebral artery dissection. 3. Status post C3 through C6 laminectomy and C4-C5 fusion. 4. Quadriplegia. PLAN: Plan will be to continue supportive care. Encourage physical and occupational therapy. We have discontinued his Kerns catheter and started bladder training. We will await recommendations from Speech. The patient is stable enough to be moved to the surgical floor today. The patient was evaluated this morning with Dr. Whitt during rounds. Job ID: [id number]
[2020-01-23] MEDS: diphenhydrAMINE 50 MG/ML VIAL IVP PRN (20:18)
[2020-01-23] MEDS: Nicotine 14 MG PATCH TD SCH (20:22)
--- NOTE | 2020-01-23 21:20 | PDOC.BPN ---
- Brief Progress Note I have discussed the patient with the advanced practice provider and agree with the findings and plan of care annotated in their note dated January 23, 2020. I have examined the patient and reviewed the pertinent radiographic and laboratory findings. Briefly, he did well over the last 24 hours. He was seen by [facility] and underwent swallow study which was questionable for the pharyngeal phase. PLAN: Ice chips only for now, plan for repeat swallow study in 72 to 96 hours Begin chemoprophylaxis with Lovenox Continue therapy Discontinue Kerns catheter and begin bladder training
--- NOTE | 2020-01-23 21:22 | PDOC.BPN ---
- Brief Progress Note DATE OF SERVICE: 01/23/2020 SUBJECTIVE: Mr. Galvan is a 64-year-old male, status post fall from a tree. 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 He has loss of motor function and sensory function on 4 extremities. The patient underwent urgent C3-C6 posterior laminectomy for the purpose of decompression with Dr. Maldonado. Patient remained in [facility] . Speech therapist saw him today, recommen swallo barrium study and ice chip only . PO trial . pain is controlled. He has developed no fever or shortness of breath. However, his motor function and sensory function have not yet returned. His vital signs have been stable. He has difficult of voiding this afternoon . Await for bladder scan from bedside nurse OBJECTIVE: GENERAL: Currently, the patient is lying in bed comfortably with no acute respiratory distress. VITAL SIGNS: Stable. LUNGS: Clear bilaterally. HEART: Regular rate and rhythm. ABDOMEN: Soft, nondistended. EXTREMITIES: Motor function on four extremity is 0/6. He can feel sensory of the bilateral upper extremity, but bilateral lower extremity sensory impaired. NEUROLOGY: GCS 15. ASSESSMENT: 1. Status post fall from a tree. 2. 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 3. Status post posterior C3-C6 laminectomy decompression, postop day 0. 4. Right vertebral artery occlusion transection non op. 5. 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 PLAN: We will continue supportive care. Continue pain control. Continue Decadron for inflammation. The patient will need to work with physical therapy and occupation therapy. Continue nonpharmacological DVT prophylaxis, gastritis prophylaxis. Swallow barium study tomorrow
[2020-01-24] MEDS: traMADol HCl 50 MG TAB PO SCH ×5 (00:54→23:27)
[2020-01-24] MEDS: Sodium Chloride 0.9% 1,000 ML IV SCH ×4 (03:12→23:31)
[2020-01-24] MEDS: Morphine 4 MG/ML VIAL SLOW IVP PRN ×2 (04:03→09:57)
[2020-01-24 05:03] LABS: #Lymphocytes 1.2 thou/uL (1.20-3.40); #Monocytes 0.6 thou/uL (0.11-0.59); #Neutrophils 9.1 thou/uL (1.40-6.50); %Eosinophils 0.1 % (0.0-10.0); %Lymphocytes 11.4 % (21.0-51.0); %Neutrophils 83.5 % (42.0-75.0); Hemoglobin 12.3 g/dL (14.0-18.0); Mean Corpuscular HGB CONC 32.2 g/dL (32.0-36.0); Mean Corpuscular Hemoglobin 33.3 pg (27.0-31.0); Mean Platelet Volume 7.7 fL (7.4-10.4); Platelet Count 202 thou/uL (130-400); RBC Distribution Width 11.6 % (11.5-14.5); Red Blood Cell (RBC) Count 3.71 mill/uL (4.70-6.10); White Blood Cell (WBC) Count 10.9 thou/uL (4.8-10.8)
[2020-01-24 05:24] LABS: Anion Gap 9 mmol/L (10-20); BUN (Urea Nitrogen) 15 mg/dL (8.4-25.7); Calc. Creatinine Clearance 105 mL/min (70-130); Calcium 7.8 mg/dL (7.8-10.44); Carbon Dioxide 22 mmol/L (23-31); Chloride 109 mmol/L (98-107); Estimated GFR-MDRD Greater than 90; Glucose 96 mg/dL (80-115); Phosphorus 2.3 mg/dL (2.3-4.7); Potassium 4.1 mmol/L (3.5-5.1); Sodium 136 mmol/L (136-145)
[2020-01-24] MEDS: ceFAZolin 1 GM/D5W 1 GM in Premix Bag 1 BAG IVPB SCH ×3 (06:02→23:30)
[2020-01-24] MEDS: Famotidine/PF 20 mg/2ml Vial SLOW IVP SCH ×2 (09:47→21:15)
[2020-01-24] MEDS: Dexamethasone 4 mg/ml Vial SLOW IVP SCH ×3 (09:48→21:16)
[2020-01-24] MEDS: Enoxaparin Sodium 40 MG/0.4 ML SYRINGE SC SCH (09:50)
[2020-01-24] MEDS: Gabapentin 300 MG CAP PO SCH ×3 (09:59→21:17)
[2020-01-24] MEDS ORDERED: Acetaminophen/Codeine Oral Solution PO PRN (11:22)
--- NOTE | 2020-01-24 11:32 | RAD ---
KUB INDICATION: Abdominal pain COMPARISON: None FINDINGS: Bowel gas: There is diffuse gaseous distention of small and large bowel. Dobbhoff feeding tube tip is seen near the region of the gastric fundus. Lung bases: There is mild right basilar airspace opacity which may reflect areas of subsegmental volu me loss. Additional findings: No suspicious calcification demonstrated. Osseous structures: No acute osseous abnormality is demonstrated. IMPRESSION: 1. Nonspecific mild/moderate gaseous distention of small and large bowel may reflect ileus. 2. Dobbhoff feeding tube tip seen within the region of the gastric fundus. 3. Increased airspace opacity in the right lung base may reflect atelectasis, aspiration or pneumonia
[2020-01-24] MEDS: Acetaminophen 650 MG/20.3 ML UDCUP PO SCH ×2 (13:08→18:34)
[2020-01-24] MEDS: traMADol HCl 50 MG TAB PO PRN ×2 (13:08→18:35)
[2020-01-24] MEDS ORDERED: Pancrelipase DR 12,000 1 CAP PER TUBE PRN (13:34)
[2020-01-24] MEDS ORDERED: Sodium Bicarbonate Tab 325 MG TAB PER TUBE PRN ×2 (13:35→15:49)
[2020-01-24] MEDS: Ibuprofen 100 MG/5 ML UDCUP PO SCH ×2 (15:36→23:29)
[2020-01-24] MEDS ORDERED: Pancrelipase DR 12,000 1 CAP FS PRN (15:49)
[2020-01-24] MEDS: Nicotine 14 MG PATCH TD SCH (21:14)
[2020-01-24] MEDS: hydrALAZINE 20 MG/ML VIAL SLOW IVP PRN (21:14)
[2020-01-24] MEDS ORDERED: diphenhydrAMINE 50 MG/ML VIAL IVP SCH (21:15)
[2020-01-25] MEDS: Acetaminophen 650 MG/20.3 ML UDCUP PO SCH ×4 (00:35→18:49)
--- NOTE | 2020-01-25 00:46 | PDOC.BPN ---
- Brief Progress Note DATE OF SERVICE: 01/24/2020 SUBJECTIVE: Mr. Galvan is a 64-year-old male, status post fall from a tree. 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 He has loss of motor function and sensory function on 4 extremities. The patient underwent urgent C3-C6 posterior laminectomy for the purpose of decompression with Dr. Maldonado. Patient was transfered to surgical floor today . Patient swalloing function has been good for me He has developed no fever or shortness of breath. However, his motor function and sensory function have not yet returned. His vital signs have been stable. OBJECTIVE: GENERAL: Currently, the patient is lying in bed comfortably with no acute respiratory distress. VITAL SIGNS: Stable. LUNGS: Clear bilaterally. HEART: Regular rate and rhythm. ABDOMEN: Soft, nondistended. EXTREMITIES: Motor function on four extremity is 0/6. He can feel sensory of the bilateral upper extremity, but bilateral lower extremity sensory impaired. NEUROLOGY: GCS 15. ASSESSMENT: 1. Status post fall from a tree. 2. 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 3. Status post posterior C3-C6 laminectomy decompression, postop day 0. 4. Right vertebral artery occlusion transection non op. 5. 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 PLAN: We will continue supportive care. Continue pain control. Continue Decadron for inflammation. The patient will need to work with physical therapy and occupation therapy. Continue nonpharmacological DVT prophylaxis, gastritis prophylaxis. Speech reevaluation for swallowing function
[2020-01-25] MEDS: Sodium Chloride 0.9% 1,000 ML IV SCH ×3 (03:25→12:20)
[2020-01-25] MEDS: Ondansetron PF 4 MG/2 ML Vial IVP PRN (03:25)
[2020-01-25] MEDS: traMADol HCl 50 MG TAB PO PRN (03:25)
[2020-01-25] MEDS: traMADol HCl 50 MG TAB PO SCH ×3 (06:12→18:49)
[2020-01-25] MEDS: ceFAZolin 1 GM/D5W 1 GM in Premix Bag 1 BAG IVPB SCH (06:12)
[2020-01-25] MEDS: Ibuprofen 100 MG/5 ML UDCUP PO SCH ×3 (06:16→21:44)
--- NOTE | 2020-01-25 06:33 | PRG ---
DATE OF SERVICE: 01/25/2020 SUBJECTIVE: The patient has had very little change in his motor or sensation function since the event postoperatively. He continues to complain of some discomfort this morning in the neck and shoulders. He continues to have some swallowing issues and had a Dobhoff placed overnight. He is tolerating his tube feeds well. He has also had some issues with bladder distention and had an indwelling Kerns placed. OBJECTIVE: GENERAL: On exam this morning, he is sitting up. He is in no acute distress. VITAL SIGNS: Stable. SKIN: His incision is clean, dry, and intact. EXTREMITIES: There is no motor function appreciated in the extremities. He does report some sensation more proximally in both the upper extremities and along the anterior thighs. ASSESSMENT AND PLAN: The patient had very little change overall. Plans are for additional speech therapy evaluation and if he does not improve, he may require a PEG placement. Continue PT, OT, and will ultimately need rehab. Job ID: [id number]
--- NOTE | 2020-01-25 08:26 | PRG ---
DATE OF SERVICE: 01/24/2020 SUBJECTIVE: Mr. Galvan is a 64-year-old male, status post fall from a tree. 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 He has loss of motor and sensory function in all four extremities. The patient underwent urgent C3 through C6 posterior laminectomy for the purpose of decompression with Dr. Maldonado and has functional C5 quadriplegia. The patient has been unable to eat since hospitalization on the . A barium swallow was done yesterday, which the patient failed, so the patient is currently n.p.o. He is currently undergoing bladder training at this time. OBJECTIVE: VITAL SIGNS: Temperature 97.3, heart rate 61, respiratory rate 24, O2 94 on 2 L nasal cannula, blood pressure 133/86. GENERAL: Currently, the patient is lying in bed comfortably. HEAD: Normocephalic and atraumatic. HEART: Regular rate and rhythm. LUNGS: Clear to auscultation bilaterally. ABDOMEN: Soft. Nondistended. EXTREMITIES: No motor function in all four extremities. NEUROLOGIC: GCS of 15. LABORATORY DATA: Hemoglobin of 12.3, white blood cell count of 10.9, platelet count of 202. ASSESSMENT: 1. Status post fall from tree. 2. 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 3. Status post C3 through C6 laminectomy, decompression, postoperative day 1. 4. Right vertebral arterial occlusion and transection, nonoperative. 5. 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 PLAN: 1. We will continue supportive care. We will discuss case with Dr. Maldonado to assess the need for aspirin due to the right vertebral artery occlusion. 2. Dobhoff placement was done today. We will continue Decadron for inflammation that is supposed to be completed on January 29. 3. Continue workup with PT and OT. 4. Continue gastric prophylaxis, DVT prophylaxis with Lovenox. Continue antibiotic, cefazolin. Job ID: [id number]
[2020-01-25] MEDS: Famotidine/PF 20 mg/2ml Vial SLOW IVP SCH ×2 (09:33→21:50)
[2020-01-25] MEDS: Dexamethasone 4 mg/ml Vial SLOW IVP SCH ×3 (09:34→21:49)
[2020-01-25] MEDS: Enoxaparin Sodium 40 MG/0.4 ML SYRINGE SC SCH (09:34)
[2020-01-25] MEDS: Gabapentin 300 MG CAP PO SCH ×3 (09:34→21:50)
[2020-01-25 12:16] LABS: SARS-CoV-2 MS2 Positive; SARS-CoV-2 N Gene Negative; SARS-CoV-2 S Gene Negative; SARS-CoV-2 by NAA Not Detected (NotDetected); SARS-CoV-2 orf1ab Negative
[2020-01-25] MEDS ORDERED: Cyclobenzaprine 10 MG TAB PER TUBE SCH (13:00)
[2020-01-25] MEDS ORDERED: Dexamethasone 4 mg/ml Vial SLOW IVP SCH (21:00)
[2020-01-25] MEDS: Nicotine 14 MG PATCH TD SCH (22:14)
[2020-01-26] MEDS: Acetaminophen 650 MG/20.3 ML UDCUP PO SCH ×4 (00:11→18:26)
[2020-01-26] MEDS: traMADol HCl 50 MG TAB PO SCH ×4 (00:11→18:27)
[2020-01-26] MEDS: hydrALAZINE 20 MG/ML VIAL SLOW IVP PRN (00:49)
[2020-01-26] MEDS: Ibuprofen 100 MG/5 ML UDCUP PO SCH ×3 (05:13→21:19)
--- NOTE | 2020-01-26 06:51 | PRG ---
DATE OF SERVICE: 01/26/2020 SUBJECTIVE: No overnight events. The patient has little change in his motor or sensation function. He continues to have some swallowing issues, and we are pending a COVID test for consideration of barium swallow evaluation. OBJECTIVE: On this morning, his vital signs are stable. He is awake, alert, and in no acute distress. He is resting comfortably in the bed. He is having some intermittent spasticity noted, but otherwise no directed motor function. He does admit to some sensation to touch over the proximal part of the extremities. PLAN: Continue current course of care, PT, OT, and eventually rehab placement. Ok to begin aspirin today for vertebral artery dissection. Barium swallow for swallow eval after covid test returns. Job ID: [id number] [facility]
--- NOTE | 2020-01-26 09:07 | CON ---
DATE OF CONSULTATION: 01/26/2020 Mr. Galvan is alert. Pain control is satisfactory. He reports some subjective sensory improvement in his extremities, but there is no demonstrable motor improvement. He is undergoing a swallow evaluation. The swallowing problems would not likely be directly related to his cervical fracture and are of unclear etiology. We will continue DVT prophylaxis and is safe to initiate aspirin for his vertebral dissection at this stage. Once the swallowing issues are addressed, he could be mobilized to rehab and I will arrange a 2-week followup. Job ID: [id number]
[2020-01-26] MEDS: Famotidine/PF 20 mg/2ml Vial SLOW IVP SCH (09:29)
[2020-01-26] MEDS: Dexamethasone 4 mg/ml Vial SLOW IVP SCH ×2 (09:32→21:19)
[2020-01-26] MEDS: Enoxaparin Sodium 40 MG/0.4 ML SYRINGE SC SCH (09:32)
[2020-01-26] MEDS: Aspirin 81 mg Enteric Coated Tablet PO SCH ×2 (09:33→21:16)
[2020-01-26] MEDS: Gabapentin 300 MG CAP PO SCH ×3 (09:33→21:17)
--- NOTE | 2020-01-26 09:41 | PRG ---
DATE OF SERVICE: 01/25/2020 SUBJECTIVE: Mr. Galvan is a 64-year-old male status post fall from a tree. He sustained a cervical spine injury with central cord syndrome with motor and sensory sensationally intact to C5. He has loss of motor and sensory function in all four extremities. The patient underwent urgent C3 through C6 posterior laminectomy for the purpose of decompression with Dr. Maldonado and is currently postop day #4. The patient's swallowing function is not up to par, so Dobhoff was inserted yesterday. He is continuing to work to regain sensation and motor function in extremities. OBJECTIVE: VITAL SIGNS: Temperature 98.7, heart rate 84, respiratory rate 20, O2 saturation 91% on room air, blood pressure 105/67. GENERAL: The patient is awake, alert, and sitting in a chair with assistance. HEAD: Normocephalic, atraumatic. HEART: Regular rate and rhythm. LUNGS: Clear to auscultation bilaterally. ABDOMEN: Soft, nondistended. EXTREMITIES: Motor and sensory function is 0/6. He can feel and move only at the shoulders. NEUROLOGIC: GCS of 15. Extremities as above with motor and sensory function. ASSESSMENT: 1. Status post fall from tree. 2. Quadriplegia secondary to central cord syndrome of C5. 3. Status post posterior C3 through C6 laminectomy and decompression, postop day 4. 4. Right vertebral artery occlusion transsection. 5. 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 PLAN: Continue supportive care and pain control and Decadron for inflammation. Continue work with PT and OT. Continue nonpharmacological DVT prophylaxis. Will work on placement. The patient needs to go to spinal cord injury rehab, but his insurance may be an issue. We will continue to follow with case management regarding placement. Neurosurgery recommends PEG tube placement if his speech does not continue to improve. This patient was seen and evaluated with Dr. White and he agrees with the assessment and plan. Job ID: [id number] [facility]
[2020-01-26] MEDS: Acetaminophen/Codeine 120-12MG/5 ML UDCUP PO PRN ×2 (10:49→22:24)
--- NOTE | 2020-01-26 13:58 | PRG ---
DATE OF SERVICE: 01/26/2020 SUBJECTIVE: Mr. Galvan is a 64-year-old male, status post fall from tree. He sustained a cervical spine injury with central cord syndrome and motor and sensory loss below C5. The patient underwent a C3 through C6 posterior laminectomy with purpose of decompression with Dr. Maldonado and is currently postop day 5. The patient's swelling has improved. The patient will undergo a barium swallow study this afternoon. The patient says he is able to feel more on the left side than the right and he has more sensation that he did yesterday. OBJECTIVE: VITAL SIGNS: Temp 98, pulse 74, respiratory rate 16, O2 saturations 96 on room air, and blood pressure is 129/72. GENERAL: The patient is awake, alert, and sitting in a chair. HEAD: Normocephalic and atraumatic. HEART: Regular rate and rhythm. LUNGS: Clear to auscultation bilaterally. ABDOMEN: Soft, nondistended. EXTREMITIES: Motor and sensory function are impaired in all 4 extremities, but the patient does feel sensation all the way to the tip of the fingers now. Extremities are neurovascularly intact x4. NEUROLOGIC: GCS of 15. ASSESSMENT: 1. Status post fall from tree. 2. Quadriplegia secondary to central cord syndrome of C5. 3. Status post C3 through C6 laminectomy and decompression, postop day 5. 4. Right vertebral arterial occlusion and transection. 5. 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 PLAN: Continue supportive care and pain control. We will evaluate swallow this afternoon or in the morning with Speech Therapy. The patient was placed today on aspirin 81 mg b.i.d. for DVT prophylaxis. We will continue to work with Case Management for placement. This patient was seen and evaluated with Dr. White, who agrees with the assessment and plan. Job ID: [id number] [facility]
--- NOTE | 2020-01-26 14:15 | RAD ---
Modified Barium Swallow CLINICAL HISTORY: Dysphagia, unspecified R13.10 FINDINGS: The examination is performed under real-time fluoroscopy under guidance of the speech ther apy department. Total fluoroscopic time was 1.8 minutes. Total exposure was 0.989 leonard per centimeter square. No episodes of tracheal aspiration or penetration demonstrated. IMPRESSION: No episodes of tracheal aspiration or penetration demonstrated. Reference speech pathology report for further details.
[2020-01-26] MEDS: Nicotine 14 MG PATCH TD SCH (21:16)
[2020-01-26] MEDS: Famotidine 20 MG TAB PER TUBE SCH (21:17)
[2020-01-27] MEDS: traMADol HCl 50 MG TAB PO SCH ×5 (00:08→23:21)
[2020-01-27] MEDS: Acetaminophen 650 MG/20.3 ML UDCUP PO SCH ×5 (00:28→23:21)
[2020-01-27] MEDS: Acetaminophen/Codeine 120-12MG/5 ML UDCUP PO PRN (05:36)
[2020-01-27] MEDS: Ibuprofen 100 MG/5 ML UDCUP PO SCH ×3 (05:37→21:32)
[2020-01-27 06:57] LABS: #Eosinphils 0.1 thou/uL (0.0-0.7); #Lymphocytes 3.1 thou/uL (1.20-3.40); #Monocytes 1.2 thou/uL (0.11-0.59); #Neutrophils 10.1 thou/uL (1.40-6.50); %Basophils 0.3 % (0.0-1.0); %Eosinophils 0.7 % (0.0-10.0); %Lymphocytes 21.1 % (21.0-51.0); %Monocytes 8.2 % (0.0-10.0); %Neutrophils 69.8 % (42.0-75.0); Mean Corpuscular HGB CONC 33.2 g/dL (32.0-36.0); Mean Corpuscular Hemoglobin 34.5 pg (27.0-31.0); Mean Platelet Volume 7.5 fL (7.4-10.4); Platelet Count 229 thou/uL (130-400); RBC Distribution Width 12.1 % (11.5-14.5); Red Blood Cell (RBC) Count 3.77 mill/uL (4.70-6.10); White Blood Cell (WBC) Count 14.5 thou/uL (4.8-10.8)
[2020-01-27 07:12] LABS: Anion Gap 8 mmol/L (10-20); BUN (Urea Nitrogen) 22 mg/dL (8.4-25.7); Calc. Creatinine Clearance 106 mL/min (70-130); Calcium 7.7 mg/dL (7.8-10.44); Carbon Dioxide 27 mmol/L (23-31); Chloride 104 mmol/L (98-107); Estimated GFR-MDRD Greater than 90; Glucose 107 mg/dL (80-115); Potassium 4.3 mmol/L (3.5-5.1); Sodium 135 mmol/L (136-145)
[2020-01-27 07:13] LABS: Phosphorus 1.4 mg/dL (2.3-4.7)
--- NOTE | 2020-01-27 07:55 | PRG ---
DATE OF SERVICE: 01/27/2020 The patient is now postoperative day #6, status post C3 through C6 decompression and C4-C5 posterior fusion. He continues to have very little improvement in his motor function. He has reported some subjective improvement in his sensation in the extremities. He had a swallow evaluation done yesterday with some tracheal penetration noted. Speech Pathology made several recommendations for textures and positioning to assist with the swallowing. The patient has also been started on p.o. aspirin for his vertebral artery dissection and is also continuing to get DVT prophylaxis. On exam this morning, he is awake, sitting up comfortably in no acute distress. He is able to swallow some ice chips without any difficulty. He reports some subjective increased sensation on the left-hand side, but no motor function is appreciated. The patient continued to have quite a bit of swallowing dysfunction and will benefit for ongoing speech therapy. Continue with pureed diet and positioning per recs. Continue PT/OT. Appropriate for rehab when available. Job ID: [id number] [facility]
[2020-01-27] MEDS ORDERED: Sodium Phosphate 30 MMOL in Sodium Chloride 0.9% 250 ML 250 ML IVPB SCH (08:00)
[2020-01-27] MEDS: Dexamethasone 4 mg/ml Vial SLOW IVP SCH ×2 (10:22→21:33)
[2020-01-27] MEDS: Aspirin 81 mg Enteric Coated Tablet PO SCH ×2 (10:22→21:33)
[2020-01-27] MEDS: Gabapentin 300 MG CAP PO SCH (10:23)
[2020-01-27] MEDS: Enoxaparin Sodium 40 MG/0.4 ML SYRINGE SC SCH (10:23)
[2020-01-27] MEDS: Famotidine 20 MG TAB PER TUBE SCH ×2 (10:23→21:33)
--- NOTE | 2020-01-27 14:52 | PRG ---
DATE OF SERVICE: 01/27/2020 SUBJECTIVE: Mr. Galvan is a 64-year-old male status post fall from tree. He sustained a cervical spinal injury with central cord syndrome and motor and sensory loss below C5. The patient underwent a C3 through C6 laminectomy with purpose of decompression with Dr. Maldonado. He is currently postop day five. The patient's swelling has improved. The patient underwent a barium swallow yesterday. It was determined he could eat a pureed diet while sitting up. The patient reports he has more pain on his right side today. OBJECTIVE: VITAL SIGNS: Temp 98.2, heart rate 79, respiratory rate 18, O2 96 on room air, blood pressure 130/72. GENERAL: The patient is awake, alert, and alert. HEAD: Normocephalic, atraumatic. HEART: Regular rate and rhythm. LUNGS: Clear to auscultation bilaterally. ABDOMEN: Soft, nondistended. EXTREMITIES. Motor and sensory function are impaired in all 4 extremities. The patient does have sensation to the tip of his fingers and is starting to experience pain on the right side, mostly in the shoulder. NEUROLOGIC: GCS of 15. VASCULARLY: Intact x4. ASSESSMENT: 1. Status post fall from tree. 2. Quadriplegia secondary to central cord syndrome of C5. 3. Status post C3 through C6 laminectomy and decompression, postop day 6. 4. Right vertebral artery occlusion and transection. 5. 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 PLAN: Continue supportive care. The patient's gabapentin was discontinued and Lyrica 75 mg b.i.d. was started. Pureed diet was started today and potassium. Phosphorus was replaced. We will continue to work with case management for placement. This patient was seen and evaluated with Dr. White, who agrees with assessment and plan. Job ID: [id number] [facility]
[2020-01-27] MEDS: Nicotine 14 MG PATCH TD SCH (21:31)
[2020-01-27] MEDS: Pregabalin 75 MG CAP PO SCH (21:32)
[2020-01-28] MEDS: Acetaminophen 650 MG/20.3 ML UDCUP PO SCH ×4 (06:07→23:41)
[2020-01-28] MEDS: traMADol HCl 50 MG TAB PO SCH ×4 (06:07→23:41)
[2020-01-28] MEDS: Ibuprofen 100 MG/5 ML UDCUP PO SCH ×3 (06:08→20:43)
[2020-01-28 06:17] LABS: Hemoglobin 13.1 g/dL (14.0-18.0); Mean Corpuscular HGB CONC 32.9 g/dL (32.0-36.0); Mean Corpuscular Hemoglobin 33.7 pg (27.0-31.0); Mean Platelet Volume 7.6 fL (7.4-10.4); Platelet Count 244 thou/uL (130-400); RBC Distribution Width 12.4 % (11.5-14.5); Red Blood Cell (RBC) Count 3.88 mill/uL (4.70-6.10); White Blood Cell (WBC) Count 17.1 thou/uL (4.8-10.8)
[2020-01-28 06:39] LABS: Anion Gap 10 mmol/L (10-20); BUN (Urea Nitrogen) 24 mg/dL (8.4-25.7); Calc. Creatinine Clearance 102 mL/min (70-130); Calcium 8.5 mg/dL (7.8-10.44); Carbon Dioxide 29 mmol/L (23-31); Chloride 100 mmol/L (98-107); Estimated GFR-MDRD Greater than 90; Glucose 115 mg/dL (80-115); Magnesium 1.9 mg/dL (1.6-2.6); Phosphorus 2.9 mg/dL (2.3-4.7); Potassium 4.8 mmol/L (3.5-5.1); Sodium 134 mmol/L (136-145)
[2020-01-28] MEDS ORDERED: Dexamethasone 4 mg/ml Vial SLOW IVP SCH (09:00)
[2020-01-28] MEDS: Dexamethasone 4 mg/ml Vial SLOW IVP SCH (09:08)
[2020-01-28] MEDS: Acetaminophen/Codeine 120-12MG/5 ML UDCUP PO PRN ×2 (09:11→20:42)
[2020-01-28] MEDS: Aspirin 81 mg Enteric Coated Tablet PO SCH ×2 (09:12→20:43)
[2020-01-28] MEDS: Famotidine 20 MG TAB PER TUBE SCH ×2 (09:13→20:43)
[2020-01-28] MEDS: Pregabalin 75 MG CAP PO SCH ×2 (09:13→20:43)
--- NOTE | 2020-01-28 09:21 | RAD ---
XR Chest 1 View Portable History: Elevated white blood cells. Aspiration risk Comparison: Chest radiograph January 21, 2020 Findings: Moderate right layering pleural effusion. Right basilar and middle lobe airspace consolidat ion. Left lung is clear. Surgical clips along the neck. Weighted feeding tube tip projecting over the gastric fundus. Impression: 1. Moderate layering right pleural effusion. 2. Right middle lobe and right lower lobe airspace consolidation concerning for pneumonia which may b e aspiration related. 3. Weighted feeding tube tip in the gastric fundus.
--- NOTE | 2020-01-28 09:29 | PRG ---
DATE OF SERVICE: 01/28/2020 SUBJECTIVE: The patient is now 7 days out from his traumatic spinal injury with cord contusion and C4 fracture of the lamina as well as right vertebral artery dissection, status post C3-C6 posterior decompression and C4-C5 fusion. He continues to have very little change in his motor function. He has some subjective improved sensation. He is being treated with an 81 mg aspirin daily for his vertebral artery dissection and he is also getting DVT prophylaxis. His steroids continue to trend down and should stop on Friday. He has had significant swallowing issues as well and had been evaluated by Speech Therapy. He had some tracheal penetration on his barium swallow and we are trying a pureed diet over the next several days to see how he does. Ultimately, if he fails this, he may require a PEG tube. He has also been a difficult placement as far as rehab due to his insurance and Case Management is assisting on this. Elevated WBC today 17,000. OBJECTIVE: On exam, this morning, he is awake and alert. He is uncomfortable and complaining of some right shoulder pain. His incision is clean, dry, and intact. No appreciated motor function on my exam. Subjective sensation to extremities. PLAN: We will continue to have the patient work with Speech Therapy and see how he does with a pureed diet over the next few days. He is also noted to have an elevated WBC today. This may be due to his steroids, although he is an aspiration risk, so I will check a chest x-ray. Continue PT/OT as well. Case Management is assisting with placement at a rehab facility. Job ID: [id number] [facility]
[2020-01-28] MEDS: Ondansetron PF 4 MG/2 ML Vial IVP PRN (11:18)
[2020-01-28] MEDS: Enoxaparin Sodium 40 MG/0.4 ML SYRINGE SC SCH (11:20)
--- NOTE | 2020-01-28 14:10 | PRG ---
DATE OF SERVICE: 01/28/2020 SUBJECTIVE: The patient was seen during morning rounds with Dr. White. The patient is hospital day #7 status post fall from tree. The patient sustained a cervical spinal injury with central cord syndrome and motor and sensory loss below C5. The patient is postop day #7 status post C3 through C6 laminectomy with decompression by Dr. Olivares. The patient has been tolerating a pureed nectar thick diet while sitting up. The patient's pain in his right shoulder is well controlled after changing the patient's medication yesterday from gabapentin to Lyrica. The patient voices no complaints or concerns at this time. The patient continues to tolerate his tube feeds The patient did have some nausea after receiving his Tylenol with codeine orally. We will have nursing staff to give via NG tube in the future. OBJECTIVE: VITAL SIGNS: Temperature 98.7, pulse 83, respirations 18, SpO2 of 96% on room air, blood pressure 150/85. GENERAL: The patient is awake, alert, sitting up in hospital bed, in no acute distress. HEENT: Head is atraumatic and normocephalic. LUNGS: Good inspiratory and expiratory effort, bilateral breath sounds clear and nonlabored. ABDOMEN: Soft, nontender, nondistended, Kerns catheter in place. EXTREMITIES: Motor and sensory function are impaired in all 4 extremities. The patient does have sensation to the tip of his fingers, increased on the right, mostly in his shoulder. NEUROLOGIC: GCS is 15. LABORATORY DATA: WBC 17.1, RBC 3.88, hemoglobin 13.1, hematocrit 39.8, platelets 244. Sodium 134, potassium 4.8, chloride 100, BUN 24, creatinine 0.77, estimated GFR greater than 90, glucose 115, and calcium 8.5. Phosphorus 2.9. Magnesium 1.9. DIAGNOSTIC STUDIES: Chest x-ray, impression: Moderate layering right pleural effusion. Right middle lobe and right lower lobe airspace consolidation, concerning for pneumonia, which may be aspiration related. Feeding tube tip in gastric fundus. ASSESSMENT: 1. Status post fall from tree. 2. Quadriplegia secondary to central cord syndrome at C5. 3. Status post C3 through C6 laminectomy and decompression, postop day #7. 4. Right vertebral artery occlusion and transection, treated with aspirin. 5. 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 PLAN: Continue supportive care. Continue physical and occupational therapy and increase daily as much as possible. Continue Lyrica. Continue to have Speech Therapy evaluate the patient daily. Continue pureed nectar thick diet while sitting up with aspiration precautions as tolerated. Continue tube feeds per dietary recommendations. We will watch for aspiration pneumonia. The patient has been afebrile. No antibiotics warranted at this time. Elevated white count likely due to steroid medications. Case management working on placement. The patient was seen and evaluated by Dr. White. Job ID: [id number]
[2020-01-28] MEDS: Nicotine 14 MG PATCH TD SCH (20:43)
[2020-01-29] MEDS: traMADol HCl 50 MG TAB PO SCH ×4 (05:36→17:25)
[2020-01-29] MEDS: Acetaminophen/Codeine 120-12MG/5 ML UDCUP PO PRN ×2 (05:36→21:56)
[2020-01-29] MEDS: Ibuprofen 100 MG/5 ML UDCUP PO SCH ×3 (05:36→21:57)
[2020-01-29] MEDS: Acetaminophen 650 MG/20.3 ML UDCUP PO SCH ×3 (05:37→17:24)
[2020-01-29] MEDS ORDERED: Clopidogrel Bisulfate 75 MG TAB ONE (06:18)
[2020-01-29] MEDS: Pregabalin 75 MG CAP PO SCH ×2 (08:05→21:57)
[2020-01-29] MEDS: Aspirin 81 mg Enteric Coated Tablet PO SCH ×2 (08:05→21:57)
[2020-01-29] MEDS: Famotidine 20 MG TAB PER TUBE SCH ×2 (08:05→21:57)
[2020-01-29] MEDS: Dexamethasone 4 mg/ml Vial SLOW IVP SCH (08:06)
[2020-01-29] MEDS: Enoxaparin Sodium 40 MG/0.4 ML SYRINGE SC SCH (08:06)
[2020-01-29 08:59] LABS: #Eosinphils 0.3 thou/uL (0.0-0.7); #Lymphocytes 3.1 thou/uL (1.20-3.40); #Monocytes 1.4 thou/uL (0.11-0.59); #Neutrophils 9.9 thou/uL (1.40-6.50); %Basophils 0.3 % (0.0-1.0); %Eosinophils 2.1 % (0.0-10.0); %Monocytes 9.3 % (0.0-10.0); %Neutrophils 67.3 % (42.0-75.0); Hemoglobin 13.3 g/dL (14.0-18.0); Mean Corpuscular HGB CONC 33.4 g/dL (32.0-36.0); Mean Corpuscular Hemoglobin 34.8 pg (27.0-31.0); Mean Platelet Volume 7.6 fL (7.4-10.4); Platelet Count 232 thou/uL (130-400); RBC Distribution Width 12.5 % (11.5-14.5); Red Blood Cell (RBC) Count 3.82 mill/uL (4.70-6.10); White Blood Cell (WBC) Count 14.6 thou/uL (4.8-10.8)
[2020-01-29 09:34] LABS: Anion Gap 12 mmol/L (10-20); BUN (Urea Nitrogen) 32 mg/dL (8.4-25.7); Calc. Creatinine Clearance 98 mL/min (70-130); Calcium 8.4 mg/dL (7.8-10.44); Carbon Dioxide 26 mmol/L (23-31); Chloride 98 mmol/L (98-107); Estimated GFR-MDRD Greater than 90; Glucose 85 mg/dL (80-115); Magnesium 2.1 mg/dL (1.6-2.6); Phosphorus 5.1 mg/dL (2.3-4.7); Potassium 4.5 mmol/L (3.5-5.1); Sodium 131 mmol/L (136-145)
--- NOTE | 2020-01-29 12:09 | PRG ---
DATE OF SERVICE: 01/29/2020 SUBJECTIVE: The patient was seen on the surgical floor, awake, alert, in no distress. The patient reports no overnight events. The patient has been tolerating his modified puree nectar thick diet. He is postop day #8 status post C3 through C6 laminectomy with decompression. OBJECTIVE: VITAL SIGNS: Temperature 97.6, pulse 66, respirations 20, SpO2 of 93% on room air, blood pressure 96/62. GENERAL: Middle-aged male, awake, alert, in no distress. LUNGS: Good inspiratory and expiratory effort, bilateral breath sounds clear. Respirations are even and unlabored. ABDOMEN: Soft, nontender, nondistended. Kerns catheter in place. EXTREMITIES: Motor and sensory functions are impaired in all extremities. There is some sensation to the tips of his fingers on the right. NEUROLOGIC: GCS 15. LABORATORY DATA: WBC 14.6, RBC 3.82, hemoglobin 13.3, hematocrit 39.7. Sodium 131, potassium 4.5, chloride 98, BUN 32, creatinine 0.80, estimated GFR greater than 90, glucose 85, calcium 8.4, phosphorus 5.1, magnesium 2.1. DIAGNOSTIC DATA: There are no new diagnostics to review today. ASSESSMENT: 1. Status post fall from tree. 2. Quadriplegia secondary to central cord syndrome at C5. 3. Status post C3 through C6 laminectomy and decompression, postop day #8. 4. Right vertebral artery occlusion and transection, treated with aspirin. 5. 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 6. Hyponatremia. PLAN: Continue supportive care. Increase physical and occupational therapy daily. Continue to have Speech Therapy work with the patient daily. We will add sodium tablets p.o. and free water restriction for the patient's hyponatremia. The patient's white count is improving, and he has been afebrile. Case Management working on placement. The plan was discussed with the attending who agrees. Job ID: [id number]
[2020-01-29] MEDS: Sodium Chloride 1 GM TAB PO SCH (21:57)
[2020-01-29] MEDS: Nicotine 14 MG PATCH TD SCH (21:58)
[2020-01-30] MEDS: traMADol HCl 50 MG TAB PO PRN ×3 (00:15→15:56)
[2020-01-30] MEDS: traMADol HCl 50 MG TAB PO SCH ×6 (00:15→17:27)
[2020-01-30] MEDS: Acetaminophen 650 MG/20.3 ML UDCUP PO SCH ×4 (00:15→17:29)
[2020-01-30] MEDS ORDERED: Sodium Chloride 0.9% 500 ML IVPB SCH (02:30)
[2020-01-30 04:39] LABS: Hemoglobin 12.4 g/dL (14.0-18.0); Mean Corpuscular HGB CONC 32.3 g/dL (32.0-36.0); Mean Corpuscular Hemoglobin 33.3 pg (27.0-31.0); Mean Platelet Volume 7.5 fL (7.4-10.4); Platelet Count 230 thou/uL (130-400); RBC Distribution Width 12.5 % (11.5-14.5); Red Blood Cell (RBC) Count 3.72 mill/uL (4.70-6.10); White Blood Cell (WBC) Count 22.8 thou/uL (4.8-10.8)
[2020-01-30 05:09] LABS: Anion Gap 7 mmol/L (10-20); BUN (Urea Nitrogen) 41 mg/dL (8.4-25.7); Calc. Creatinine Clearance 92 mL/min (70-130); Calcium 8.2 mg/dL (7.8-10.44); Carbon Dioxide 29 mmol/L (23-31); Chloride 103 mmol/L (98-107); Estimated GFR-MDRD Greater than 90; Glucose 96 mg/dL (80-115); Magnesium 2.2 mg/dL (1.6-2.6); Phosphorus 3.4 mg/dL (2.3-4.7); Potassium 4.5 mmol/L (3.5-5.1); Sodium 134 mmol/L (136-145)
[2020-01-30 05:10] LABS: Band 10 % (5-11); Eosinophils 3 % (0-10); Lymphocytes 11 % (21-51); MDiff Complete? YES; Monocytes 9 % (0-10); Neutrophil 67 % (42-75); Platelet Morphology Comment Appears Adequate
[2020-01-30] MEDS ORDERED: Sodium Chloride 0.9% 1,000 ML IV SCH (05:15)
[2020-01-30] MEDS: Ibuprofen 100 MG/5 ML UDCUP PO SCH ×3 (05:36→22:03)
[2020-01-30] MEDS ORDERED: Hydrocortisone Sod Succ/PF 100 mg/2 ml Vial IVP SCH (06:30)
[2020-01-30] MEDS: Hydrocortisone Sod Succ/PF 100 mg/2 ml Vial IVP SCH ×3 (06:58→22:01)
--- NOTE | 2020-01-30 07:15 | PRG ---
DATE OF SERVICE: 01/30/2020 SUBJECTIVE: The patient remains on the surgical floor. He is status post a fall from a tree in which he sustained quadriplegia from C5 down secondary to a central cord syndrome. The patient has had minimal improvement from a neurologic standpoint. Overnight, the patient was noted to have systolic blood pressures that dipped into the 80s and 90s. The patient had improvement with fluid bolus and cortisol level was 3.30, and he was started on hydrocortisone. Otherwise, he reports that his pain is controlled. He was having some dizziness without nausea, which did improve after his fluid bolus. PHYSICAL EXAMINATION: VITAL SIGNS: Stable with the exception of the systolic blood pressures as previously mentioned. The patient is afebrile. GENERAL: The patient is resting comfortably in bed. He states his pain is controlled. LUNGS: Clear to auscultation bilaterally with some rhonchi noted of bilateral lower lobes. ABDOMEN: Soft, nondistended with hypoactive bowel sounds. EXTREMITIES: Unchanged. ASSESSMENT: 1. Status post fall from tree. 2. Quadriplegia secondary to central cord syndrome at C5. 3. Status post C3 through C6 laminectomy and decompression, postop day 8. 4. Right vertebral artery occlusion and transection, treated with aspirin. 5. Cervical spine epidural hematoma with severe canal stenosis, improved. 6. Hyponatremia, treated with fluid restriction and added salt. 7. Acute adrenal insufficiency. PLAN: Plan will be to begin hydrocortisone. Monitor his systolic blood pressure and urinary output. Continue to monitor his electrolytes and encourage physical and occupational therapy. We will await final placement determination. Job ID: [id number]
[2020-01-30] MEDS: Famotidine 20 MG TAB PER TUBE SCH ×2 (09:46→20:11)
[2020-01-30] MEDS: Aspirin 81 mg Enteric Coated Tablet PO SCH ×2 (09:47→20:12)
[2020-01-30] MEDS: Sodium Chloride 1 GM TAB PO SCH ×2 (09:47→20:11)
[2020-01-30] MEDS: Pregabalin 75 MG CAP PO SCH ×2 (09:47→20:12)
[2020-01-30] MEDS: Enoxaparin Sodium 40 MG/0.4 ML SYRINGE SC SCH (09:48)
[2020-01-30] MEDS: Dexamethasone 4 mg/ml Vial SLOW IVP SCH (09:56)
[2020-01-30] MEDS: Scopolamine 1.5 mg/72 hour Patch TD SCH (11:47)
[2020-01-30] MEDS: Acetaminophen/Codeine 120-12MG/5 ML UDCUP PO PRN ×2 (11:49→17:28)
--- NOTE | 2020-01-30 12:40 | PRG ---
DATE OF SERVICE: 01/30/2020 SUBJECTIVE: The patient is seen on the surgical floor, awake, alert, in moderate distress due to some shoulder pain. The patient did have some low blood pressures overnight. A cortisol level was obtained and the patient was treated for acute adrenal insufficiency. Blood pressures have improved since receiving doses of hydrocortisone IV. OBJECTIVE: VITAL SIGNS: Temperature 98.2, pulse 72, respirations 16, SpO2 of 93% on room air, blood pressure 112/67. GENERAL: Middle-aged male, awake, alert, in mild distress due to shoulder pain and being uncomfortable. RESPIRATORY: Equal chest rise and fall. Bilateral breath sounds clear. ABDOMEN: Soft, nontender, nondistended. Kerns catheter in place. EXTREMITIES: Motor and sensory functions are impaired in all extremities. There is sensation at the shoulders. NEUROLOGIC: GCS 15. LABORATORY DATA: WBC 22.8, RBC 3.72, hemoglobin 12.4, hematocrit 38.3, 10 bands. Sodium 134, potassium 4.5, chloride 103, BUN 41, creatinine 0.86, estimated GFR greater than 90, glucose 96, calcium 8.2, phosphorus 3.4, magnesium 2.2. BNP 53.9. Cortisol 3.3. DIAGNOSTICS: There are no diagnostics to review today. ASSESSMENT: 1. Status post fall from tree. 2. Quadriplegia secondary to a central cord syndrome at C5. 3. Status post C3 through C6 laminectomy and decompression, postop day #9. 4. Right vertebral artery occlusion and transsection treated with aspirin. 5. 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 6. Hyponatremia, improving. PLAN: Continue supportive care and pain regimen. Ensure that the patient is turned every 2 hours. Increase physical and occupational therapy daily. Continue sodium tablets and free water restriction for hyponatremia. Case Management is working on placement. The plan was discussed with the attending who agrees. Job ID: [id number]
[2020-01-30] MEDS: Nicotine 14 MG PATCH TD SCH (20:12)
[2020-01-31] MEDS: Acetaminophen 650 MG/20.3 ML UDCUP PO SCH ×5 (00:59→23:44)
[2020-01-31] MEDS: Acetaminophen/Codeine 120-12MG/5 ML UDCUP PO PRN ×2 (00:59→06:33)
[2020-01-31] MEDS: Ibuprofen 100 MG/5 ML UDCUP PO SCH ×3 (06:31→21:38)
[2020-01-31] MEDS: traMADol HCl 50 MG TAB PO SCH ×4 (06:36→23:44)
[2020-01-31 06:40] LABS: Mean Corpuscular HGB CONC 33.2 g/dL (32.0-36.0); Mean Corpuscular Hemoglobin 34.2 pg (27.0-31.0); Mean Platelet Volume 7.4 fL (7.4-10.4); Platelet Count 226 thou/uL (130-400); RBC Distribution Width 12.6 % (11.5-14.5); White Blood Cell (WBC) Count 31.3 thou/uL (4.8-10.8)
[2020-01-31] MEDS: Hydrocortisone Sod Succ/PF 100 mg/2 ml Vial IVP SCH (07:00)
[2020-01-31 07:07] LABS: Anion Gap 9 mmol/L (10-20); BUN (Urea Nitrogen) 29 mg/dL (8.4-25.7); Calc. Creatinine Clearance 102 mL/min (70-130); Calcium 8.4 mg/dL (7.8-10.44); Carbon Dioxide 26 mmol/L (23-31); Chloride 104 mmol/L (98-107); Estimated GFR-MDRD Greater than 90; Glucose 128 mg/dL (80-115); Magnesium 2.2 mg/dL (1.6-2.6); Phosphorus 2.6 mg/dL (2.3-4.7); Potassium 4.1 mmol/L (3.5-5.1); Sodium 135 mmol/L (136-145)
[2020-01-31 07:55] LABS: Band 3 % (5-11); Lymphocytes 8 % (21-51); MDiff Complete? YES; Monocytes 9 % (0-10); Neutrophil 77 % (42-75); Platelet Morphology Comment Appears Adequate; Polychromasia SLIGHT = 2-3 cells (100X) (0-2/hpf); Reactive Lymphocytes 3 % (0-10)
--- NOTE | 2020-01-31 07:55 | RAD ---
Chest one view HISTORY: Leukocytosis. Dyspnea. COMPARISON: 01/28/2020. FINDINGS: Cardiac silhouette is magnified by projection. Pulmonary vasculature upper limits of normal . Right hemidiaphragm remains elevated with blunting of the right lateral costophrenic angle and ill-de fined parenchymal infiltrate at the right lung base and right suprahilar level. Left lung is well-inflated. Minimal atelectasis at the left lung base. No evidence of pneumothorax. Feeding tube extends to the stomach. IMPRESSION : Stable radiographic appearance of the chest with right basilar atelectasis/infiltrate and right pleur al fluid.
--- NOTE | 2020-01-31 08:15 | ULT ---
EXAM: Bilateral lower extremity venous Doppler HISTORY: Quadriplegic, rising white blood cell count FINDINGS: Grayscale, color-flow, Doppler evaluation, spectral analysis of the bilateral lower extremity venous structures is performed with 2-D imaging. The bilateral common femoral, superficial femoral, popliteal, posterior tibial, proximal greater saphenous and profunda femoral veins are imaged. There is normal luminal compressibility, flow, and augmentation in the visualized deep venous structu res of the bilateral lower extremities. IMPRESSION: No evidence of a deep vein thrombosis in the visualized deep venous structures bilateral lower extrem ities.
[2020-01-31] MEDS: Aspirin 81 mg Enteric Coated Tablet PO SCH ×2 (08:25→20:13)
[2020-01-31] MEDS: Pregabalin 75 MG CAP PO SCH ×2 (08:25→20:13)
[2020-01-31] MEDS: Enoxaparin Sodium 40 MG/0.4 ML SYRINGE SC SCH (08:25)
[2020-01-31] MEDS: Sodium Chloride 1 GM TAB PO SCH ×2 (08:25→20:13)
[2020-01-31] MEDS: Famotidine 20 MG TAB PER TUBE SCH ×2 (08:26→20:13)
[2020-01-31] MEDS: Ondansetron PF 4 MG/2 ML Vial IVP PRN (10:46)
[2020-01-31] MEDS ORDERED: Midodrine HCl 5 MG TAB PO SCH (11:45)
[2020-01-31] MEDS: Midodrine HCl 5 MG TAB PO SCH ×2 (13:50→20:13)
--- NOTE | 2020-01-31 14:43 | PRG ---
DATE OF SERVICE: 01/31/2020 SUBJECTIVE: Mr. Galvan is resting comfortably this morning. He is in no acute distress. He reports his pain has improved, although his motor function and sensation are rather unchanged. He has been afebrile through the weekend. His white count this morning is 31,000. He does have a new chest x-ray, which shows stable right-sided atelectasis versus infiltrate and ultrasound this morning is also negative for DVT. OBJECTIVE: GENERAL: On exam, this morning, he is awake, alert, in no acute distress. VITAL SIGNS: Stable. He is afebrile. EXTREMITIES: No appreciated motor function throughout the extremities. He has some subjective sensation. Incision is clean and dry. NEUROLOGIC: Remains unchanged. He is otherwise quite stable. I will defer to the trauma team for ongoing medical management. Continue PT, OT, Speech, and continue to work on placement. Job ID: [id number]
--- NOTE | 2020-01-31 15:53 | PRG ---
DATE OF SERVICE: 01/31/2020 SUBJECTIVE: This patient is a 64-year-old male with a C5 central cord syndrome , status post fall, who had a C3-C6 laminectomy and is postop day 10 with decompression, a right vertebral artery occlusion and transection that is treated with aspirin, a cervical spine epidural hematoma with severe canal stenosis. The patient today says he is feeling more and having sensations of pain with initiating movements of the neck. The patient is regaining some left upper extremity movement and can feel sensation of the arms. OBJECTIVE: VITAL SIGNS: Temperature 98.8, heart rate 79, respiratory rate 14, O2 saturations 95% on room air, blood pressure 92/52. GENERAL: Middle-aged male, awake, alert, in no acute distress. RESPIRATORY: Equal chest rise and fall. Bilateral breath sounds clear. ABDOMEN: Soft, nontender, slightly distended. Kerns catheter in place. EXTREMITIES: Motor and sensory functions are impaired in all extremities. Sensation at the shoulders. NEUROLOGIC: GCS of 15. LABORATORY DATA: White count of 31.3 with 3 bands. The patient was previously on steroids. IMAGING: Chest x-ray, no acute finding. Ultrasound, no DVTs present. ASSESSMENT: 1. Status post fall from tree. 2. Quadriplegia secondary to a central cord syndrome at C5. 3. Status post C3 through C6 laminectomy and decompression, postop day 10. 4. Right vertebral artery occlusion and transection, treated with aspirin. 5. 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 6. Hyponatremia, improving. PLAN: Continue supportive care and pain regimen. The patient should be turned every 2 hours. ADRIAN hose should be applied to the legs. Case Management is working on placement and several centers have shown interest. We will continue to monitor and follow up tomorrow. This patient was seen and evaluated with Dr. White, who agrees with assessment and plan. Job ID: [id number] [facility]
[2020-01-31] MEDS: Sodium Chloride 0.9% 1,000 ML IV SCH (20:18)
[2020-01-31] MEDS: Nicotine 14 MG PATCH TD SCH (20:19)
[2020-02-01] MEDS: Ibuprofen 100 MG/5 ML UDCUP PO SCH ×3 (06:11→21:04)
[2020-02-01] MEDS: Acetaminophen 650 MG/20.3 ML UDCUP PO SCH ×4 (06:11→23:38)
[2020-02-01] MEDS: Sodium Chloride 0.9% 1,000 ML IV SCH ×2 (06:13→15:21)
--- NOTE | 2020-02-01 06:31 | PRG ---
DATE OF SERVICE: SUBJECTIVE: No overnight issues. Patient is resting comfortably this morning on my exam. His labs for today are still pending. His vital signs have been stable overnight. He has been afebrile. OBJECTIVE: On exam this morning, he awakens easily. He has no change in his neurologic function. Incision is clean, dry, and intact. ASSESSMENT AND PLAN: Overall, patient is minimally changed in his neurologic exam. He remains afebrile and we are monitoring his white count. He should continue to receive PT, OT, and hopefully rehab placement in the near future. Job ID: [id number]
[2020-02-01 07:23] LABS: Hemoglobin 12.3 g/dL (14.0-18.0); Mean Corpuscular HGB CONC 32.9 g/dL (32.0-36.0); Mean Corpuscular Hemoglobin 34.8 pg (27.0-31.0); Mean Platelet Volume 7.2 fL (7.4-10.4); Platelet Count 226 thou/uL (130-400); RBC Distribution Width 12.4 % (11.5-14.5); Red Blood Cell (RBC) Count 3.55 mill/uL (4.70-6.10); White Blood Cell (WBC) Count 31.7 thou/uL (4.8-10.8)
[2020-02-01 07:35] LABS: Anion Gap 9 mmol/L (10-20); BUN (Urea Nitrogen) 33 mg/dL (8.4-25.7); Calc. Creatinine Clearance 100 mL/min (70-130); Calcium 8.1 mg/dL (7.8-10.44); Carbon Dioxide 26 mmol/L (23-31); Chloride 106 mmol/L (98-107); Estimated GFR-MDRD Greater than 90; Glucose 112 mg/dL (80-115); Magnesium 1.9 mg/dL (1.6-2.6); Phosphorus 2.4 mg/dL (2.3-4.7); Potassium 3.9 mmol/L (3.5-5.1); Sodium 137 mmol/L (136-145)
[2020-02-01 07:47] LABS: Band 4 % (5-11); Lymphocytes 7 % (21-51); MDiff Complete? YES; Monocytes 8 % (0-10); Neutrophil 81 % (42-75); Platelet Morphology Comment Appears Adequate; Polychromasia SLIGHT = 2-3 cells (100X) (0-2/hpf)
[2020-02-01] MEDS: Aspirin 81 mg Enteric Coated Tablet PO SCH ×2 (08:54→21:03)
[2020-02-01] MEDS: Famotidine 20 MG TAB PER TUBE SCH ×2 (08:54→21:03)
[2020-02-01] MEDS: Sodium Chloride 1 GM TAB PO SCH ×2 (08:54→21:03)
[2020-02-01] MEDS: Pregabalin 75 MG CAP PO SCH ×2 (08:55→21:03)
[2020-02-01] MEDS: Enoxaparin Sodium 40 MG/0.4 ML SYRINGE SC SCH (08:55)
[2020-02-01] MEDS: Midodrine HCl 5 MG TAB PO SCH ×3 (08:57→21:03)
[2020-02-01] MEDS: Cyclobenzaprine 10 MG TAB PO PRN (12:19)
[2020-02-01 13:30] LABS: Bacteria/HPF None Seen HPF (None Seen); Bilirubin Negative (Negative); Blood, Urine Trace (Negative); Clarity Clear (Clear); Glucose, Urine (Dipstick) Normal (Negative); Ketone, Urine Negative (Negative); Leukocyte 500 Leu/uL (Negative); Nitrite Negative (Negative); Protein, Urine (Dipstick) 10 mg/dL (Neg-Trace); Specific Gravity, Urine 1.026 (1.002-1.036); Squamous Epithelial None Seen HPF (0-3); WBC/HPF Greater than 50 HPF (0-3)
[2020-02-01 13:32] LABS: Urine Culture Reflex Yes Yes
--- NOTE | 2020-02-01 16:44 | PRG ---
DATE OF SERVICE: 02/01/2020 SUBJECTIVE: Mr. Galvan is a 64-year-old male with C5 central cord syndrome, status post fall from tree, who had a C3 through C6 laminectomy with decompression and is postop day 11 , a right vertebral artery occlusion and transection, that is currently being treated with aspirin, and cervical spine epidural hematoma with severe canal stenosis. The patient today says he is having a lot of right shoulder pain. OBJECTIVE: VITAL SIGNS: Temperature 98.1, heart rate 77, respiratory rate 18, O2 saturation 91% on room air, blood pressure 93/59. GENERAL: Middle-age male, awake, alert, and sitting up in bed. LUNGS: Equal chest rise and fall. Bilateral breath sounds clear. HEART: Regular rate and rhythm. ABDOMEN: Soft, nontender, nondistended. EXTREMITIES: Motor and sensory functions are impaired in all extremities. Movement and sensation present at the shoulder, some movement in the left arm, and sensations in the right and left arms. NEUROLOGIC: GCS 15. LABORATORY DATA: White count is 31, as noted from yesterday. IMAGING DATA: None. ASSESSMENT: 1. Status post fall from tree. 2. Quadriplegia secondary to central cord syndrome at C5. 3. Status post C3 through C6 laminectomy and decompression postop day 11. 4. Right vertebral artery occlusion and transection, treated with aspirin. 5. Cervical spine epidural hematoma with cervical canal stenosis. 6. Hyponatremia, improving. PLAN: Continue supportive care and pain regimen. The patient is tolerating p.o. well. He should be turned every 2 hours. ADRIAN hose applied to legs yesterday. We started midodrine yesterday and blood pressures have improved. Due to the patient's white count, we ordered blood cultures and UA. We are currently working with Case Management to set up placement. [facility] considered accepting him. Paperwork will be collected that they needed by the brother hopefully today, likely the patient will be discharged by Friday. The patient is working with PT. We started Flexeril 10 mg p.o. t.i.d. p.r.n. for shoulder pain. We will await discharge. This patient was seen and discussed with Dr. White who agrees with the assessment and plan. Job ID: [id number] [facility]
[2020-02-01] MEDS ORDERED: Sulfameth/Trimethoprim DS 800-160mg TAB PO SCH (21:00)
[2020-02-01] MEDS: Nicotine 14 MG PATCH TD SCH (21:03)
[2020-02-02] MEDS: Sodium Chloride 0.9% 1,000 ML IV SCH (01:57)
--- NOTE | 2020-02-02 04:24 | PDOC.BPN ---
- Brief Progress Note DATE OF SERVICE: 02/01/2020 SUBJECTIVE: Mr. Galvan is a 64-year-old male, status post fall from a tree. 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 He has loss of motor function and sensory function on 4 extremities. The patient underwent urgent C3-C6 posterior laminectomy for the purpose of decompression with Dr. Maldonado. Patient has been doing well. He tolerate with his diet . His vital stable. He accidentally pulled out his Kerns. He still not be able to voice and he needed in and out cath OBJECTIVE: GENERAL: Currently, the patient is lying in bed comfortably with no acute respiratory distress. VITAL SIGNS: Stable. LUNGS: Clear bilaterally. HEART: Regular rate and rhythm. ABDOMEN: Soft, nondistended. EXTREMITIES: Motor function on four extremity is 0/6. He can feel sensory of the bilateral upper extremity, but bilateral lower extremity sensory impaired. NEUROLOGY: GCS 15. ASSESSMENT: 1. Status post fall from a tree. 2. 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 3. Status post posterior C3-C6 laminectomy decompression, 4. Right vertebral artery occlusion transection non op. 5. 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 PLAN: We will continue supportive care. Continue pain control. The patient will need to continue work with physical therapy and occupation therapy. Continue DVT prophylaxis, gastritis prophylaxis. Repeat CBC tomorrow await for to resolve WC issue before transfer to rehabilitation facility
[2020-02-02 05:50] LABS: #Basophils 0.1 thou/uL (0.0-0.2); #Eosinphils 0.4 thou/uL (0.0-0.7); #Lymphocytes 2.6 thou/uL (1.20-3.40); #Monocytes 1.6 thou/uL (0.11-0.59); %Basophils 0.3 % (0.0-1.0); %Eosinophils 1.2 % (0.0-10.0); %Lymphocytes 8.6 % (21.0-51.0); %Monocytes 5.1 % (0.0-10.0); %Neutrophils 84.8 % (42.0-75.0); Hemoglobin 12.2 g/dL (14.0-18.0); Mean Corpuscular HGB CONC 31.6 g/dL (32.0-36.0); Mean Corpuscular Hemoglobin 33.5 pg (27.0-31.0); Mean Platelet Volume 7.5 fL (7.4-10.4); Platelet Count 222 thou/uL (130-400); RBC Distribution Width 12.4 % (11.5-14.5); Red Blood Cell (RBC) Count 3.64 mill/uL (4.70-6.10); White Blood Cell (WBC) Count 30.6 thou/uL (4.8-10.8)
[2020-02-02 06:17] LABS: Anion Gap 10 mmol/L (10-20); BUN (Urea Nitrogen) 23 mg/dL (8.4-25.7); Calc. Creatinine Clearance 113 mL/min (70-130); Calcium 8.2 mg/dL (7.8-10.44); Carbon Dioxide 22 mmol/L (23-31); Chloride 111 mmol/L (98-107); Estimated GFR-MDRD Greater than 90; Glucose 88 mg/dL (80-115); Phosphorus 3.1 mg/dL (2.3-4.7); Potassium 3.9 mmol/L (3.5-5.1); Sodium 139 mmol/L (136-145)
[2020-02-02] MEDS: Acetaminophen/Codeine 120-12MG/5 ML UDCUP PO PRN ×3 (06:47→20:10)
[2020-02-02] MEDS: Ibuprofen 100 MG/5 ML UDCUP PO SCH ×3 (06:48→22:20)
[2020-02-02] MEDS: Acetaminophen 650 MG/20.3 ML UDCUP PO SCH ×3 (06:48→17:59)
[2020-02-02] MEDS ORDERED: Furosemide 20 MG/2 ML VIAL SLOW IVP SCH (09:00)
[2020-02-02] MEDS: Midodrine HCl 5 MG TAB PO SCH ×3 (09:20→20:13)
[2020-02-02] MEDS: Tamsulosin HCl 0.4 MG CAP PO SCH (09:20)
[2020-02-02] MEDS: Enoxaparin Sodium 40 MG/0.4 ML SYRINGE SC SCH (09:20)
[2020-02-02] MEDS: Pregabalin 75 MG CAP PO SCH ×2 (09:20→20:12)
[2020-02-02] MEDS: Famotidine 20 MG TAB PER TUBE SCH ×2 (09:21→20:14)
[2020-02-02] MEDS: Aspirin 81 mg Enteric Coated Tablet PO SCH ×2 (09:21→20:12)
[2020-02-02] MEDS: Scopolamine 1.5 mg/72 hour Patch TD SCH (09:21)
[2020-02-02] MEDS: Sodium Chloride 1 GM TAB PO SCH ×2 (09:21→22:20)
--- NOTE | 2020-02-02 09:46 | PRG ---
DATE OF SERVICE: 02/02/2020 The patient is now 12 days out from his cervical injury after a fall from a tree. He has had little change in his neurologic function. His swallowing has improved and he is tolerating a pureed diet. We have been monitoring his white blood cell count closely and it is trending down slightly today at 30,000. He has been working with PT, OT, and Case Management is assisting with placement at a rehab. On exam this morning, he is in no acute distress. His facial lacerations appear to have healed well. He has had no appreciated motor function. Sensation subjective throughout the extremities. We will go ahead and remove sutures from his facial lacerations. We will continue to have him work with PT, OT, and Speech. He is ready for inpatient rehab hopefully in the near future. We will continue to monitor his white blood cell count. Job ID: [id number]
--- NOTE | 2020-02-02 16:07 | PRG ---
DATE OF SERVICE: 02/02/2020 SUBJECTIVE: The patient is a 64-year-old male with a C5 central cord syndrome, status post fall from tree, who had a C3 through C6 laminectomy and is postop day 12 with decompression, right vertebral artery occlusion and transection that is currently being treated with aspirin, and cervical spine epidural hematoma with severe canal stenosis. The patient says he is doing okay today. He has no concerns at this time. OBJECTIVE: VITAL SIGNS: Temperature 97.4, heart rate 60, respiratory rate 16, O2 saturation 97% on room air, blood pressure 135/77. GENERAL: The patient is a middle-aged male, awake, alert. HEAD: Normocephalic, atraumatic. LUNGS: Equal chest rise and fall bilaterally. HEART: Regular rate and rhythm. ABDOMEN: Soft, nontender, nondistended. EXTREMITIES: Motor and sensory functions impaired in all extremities. Movement and sensation present at the shoulders. Some sensation below with attempted movement in arms. NEUROLOGIC: GCS of 15. LABORATORY DATA: White count is currently steady at 30. Cultures of urine showed Pseudomonas. ASSESSMENT: 1. Status post fall from tree. 2. Quadriplegia secondary to C5 central cord syndrome. 3. Status post C3 through C6 laminectomy and decompression, postoperative day 12. 4. Right vertebral artery occlusion and transection, treated with aspirin. 5. Cervical spine epidural hematoma with cervical canal stenosis. 6. Hyponatremia, resolved. 7. UTI PLAN: Continue supportive care and pain management. Urine culture showed Pseudomonas, so we will start on levofloxacin. Start tamsulosin today. Bladder scan to check for urinary retention and discontinue bethanecol. We will give him Lasix 20 mg today and discontinue his IV fluids. This patient was seen and evaluated with Dr. White, who agrees with assessment and plan. Job ID: [id number] [facility]
[2020-02-02] MEDS: Nicotine 14 MG PATCH TD SCH (22:19)
[2020-02-02] MEDS: Cyclobenzaprine 10 MG TAB PO PRN (23:14)
[2020-02-03] MEDS: Acetaminophen 650 MG/20.3 ML UDCUP PO SCH ×3 (00:30→12:19)
[2020-02-03] MEDS: Acetaminophen/Codeine 120-12MG/5 ML UDCUP PO PRN (03:51)
[2020-02-03] MEDS: Ibuprofen 100 MG/5 ML UDCUP PO SCH (06:08)
[2020-02-03 07:21] LABS: #Basophils 0.1 thou/uL (0.0-0.2); #Eosinphils 0.3 thou/uL (0.0-0.7); #Lymphocytes 2.1 thou/uL (1.20-3.40); %Basophils 0.7 % (0.0-1.0); %Eosinophils 1.8 % (0.0-10.0); %Lymphocytes 11.8 % (21.0-51.0); %Monocytes 5.5 % (0.0-10.0); %Neutrophils 80.2 % (42.0-75.0); Hemoglobin 12.6 g/dL (14.0-18.0); Mean Corpuscular HGB CONC 32.3 g/dL (32.0-36.0); Mean Corpuscular Hemoglobin 34.2 pg (27.0-31.0); Mean Platelet Volume 7.4 fL (7.4-10.4); Platelet Count 221 thou/uL (130-400); RBC Distribution Width 12.2 % (11.5-14.5); Red Blood Cell (RBC) Count 3.69 mill/uL (4.70-6.10); White Blood Cell (WBC) Count 17.5 thou/uL (4.8-10.8)
[2020-02-03 07:40] LABS: Anion Gap 10 mmol/L (10-20); BUN (Urea Nitrogen) 20 mg/dL (8.4-25.7); Calc. Creatinine Clearance 113 mL/min (70-130); Calcium 8.2 mg/dL (7.8-10.44); Carbon Dioxide 23 mmol/L (23-31); Chloride 109 mmol/L (98-107); Estimated GFR-MDRD Greater than 90; Glucose 102 mg/dL (80-115); Magnesium 1.7 mg/dL (1.6-2.6); Phosphorus 2.6 mg/dL (2.3-4.7); Potassium 3.5 mmol/L (3.5-5.1); Sodium 138 mmol/L (136-145)
--- NOTE | 2020-02-03 08:41 | PRG ---
DATE OF SERVICE: 02/03/2020 The patient is 13 days out from his cervical injury after a fall from a tree. He continues to have no change in his neurologic function. He is tolerating his pureed diet just fine. His white blood cell count is trending downward in 17,000 today. Yesterday, I removed the sutures from his facial lacerations. On exam this morning,he is sitting up in the bed. He is comfortable. He is ready for his breakfast. Incision is C/D/I. He has no change in his neurologic function. Continue with PT, OT, and speech therapy. Continue working on placement and rehab. I will remove posterior cervical xu today. Job ID: [id number] [facility]
[2020-02-03] MEDS ORDERED: Potassium Phosphate 15 MMOL, Magnesium Sulfate 2 GM in Sodium Chloride 0.9% 250 ML 250 ML IVPB ONE (09:00)
[2020-02-03] MEDS: Famotidine 20 MG TAB PER TUBE SCH (09:55)
[2020-02-03] MEDS: Tamsulosin HCl 0.4 MG CAP PO SCH (09:55)
[2020-02-03] MEDS: Enoxaparin Sodium 40 MG/0.4 ML SYRINGE SC SCH (09:56)
[2020-02-03] MEDS: Pregabalin 75 MG CAP PO SCH (09:56)
[2020-02-03] MEDS: Aspirin 81 mg Enteric Coated Tablet PO SCH (09:56)
[2020-02-03] MEDS: Midodrine HCl 5 MG TAB PO SCH (10:00)
[2020-02-03] MEDS: Cyclobenzaprine 10 MG TAB PO PRN (10:00)
[2020-02-03 12:00] VITALS: BP 112/67; TEMP 97.6
== END 2020-02-03 14:02 | DRG 28 ==
LOC: ERS 12:33 → EDBD 12:33 → ERS 16:00 → SDC/OP 16:00 → IMCU/EMU 18:57 → SURG B 01-24 01:18
PROVIDERS: ADMIT Surgery; ATTEND Surgery
PROC: 0RG2071 Fusion of 2 or more Cervical Vertebral Joints with Autologous Tissue Substitute, Posterior Approach, Posterior Column, Open Approach (ICD-10-PCS; principal; 2020-01-21)
PROC: 00NW0ZZ Release Cervical Spinal Cord, Open Approach (ICD-10-PCS; 2020-01-21)
PROC: 0HQ1XZZ Repair Face Skin, External Approach (ICD-10-PCS; 2020-01-21)
PROC: 0T9B70Z Drainage of Bladder with Drainage Device, Via Natural or Artificial Opening (ICD-10-PCS; 2020-01-25)
DX: S14.123A Central cord syndrome at C3 level of cervical spinal cord, initial encounter (principal); I77.74 Dissection of vertebral artery; G82.54 Quadriplegia, C5-C7 incomplete; E87.1 Hypo-osmolality and hyponatremia; E27.40 Unspecified adrenocortical insufficiency; N39.0 Urinary tract infection, site not specified; M48.02 Spinal stenosis, cervical region; Z11.59 Encounter for screening for other viral diseases; S12.300A Unspecified displaced fracture of fourth cervical vertebra, initial encounter for closed fracture; W14.XXXA Fall from tree, initial encounter; N32.89 Other specified disorders of bladder; S01.412A Laceration without foreign body of left cheek and temporomandibular area, initial encounter; S01.81XA Laceration without foreign body of other part of head, initial encounter
CPT/HCPCS: 36415; 36416; 36600; 70450; 70486; 70498; 70551; 71045; 71260; 72126; 72141; 72170; 74018; 74177; 74230; 76000; 80048; 80053; 80076; 80306; 80307; 81001; 81003; 82533; 83605; 83735; 83880; 84100; 85025; 85027; 85610; 85730; 86850; 86900; 86901; 87040; 87077; 87086; 87149; 87186; 87635; 90471; 90715; 93005; 93970; 94640; 96365; 96375; 96376; C1713; C1768; G0390; J0360; J0690; J1100; J1200; J1650; J1720; J1940; J2270; J2370; J2405; J2704; J3010; J3370; J3475; J3490; J7030; J7050; J7620; L1930; P9045; Q9967; S0028; U0003

== ENCOUNTER 2020-03-02 10:11 | Outpatient (CLI) | payer OTHER ==
--- NOTE | 2020-03-02 14:54 | RAD ---
EXAM: 3 views of the cervical spine HISTORY: Cervical fracture status post surgery in December COMPARISON: CT cervical spine 01/21/2020 FINDINGS: AP, lateral, and open mouth odontoid views of the cervical spine shows the patient is statu s post removal of the posterior elements from C3 through C6 and posterior fusion of C4 and C5. The intervertebral discs are narrowed throughout the cervical spine with moderate anterior osteophytes. T he vertebral bodies demonstrate normal alignment without significant subluxation. No prevertebral soft tissue swelling is seen. IMPRESSION: Postsurgical changes and degenerative changes of cervical spine as above
== END 2020-03-02 10:12 | disposition home or self-care (01) ==
LOC: TBSIIMAG 10:11
PROVIDERS: ATTEND Physician Assistant
DX: M54.2 Cervicalgia (principal); M47.812 Spondylosis without myelopathy or radiculopathy, cervical region; Z98.1 Arthrodesis status
CPT/HCPCS: 72040

== ENCOUNTER 2020-03-17 08:13 | Inpatient (IN) | payer OTHER ==
[2020-03-17] MEDS ORDERED: Acetaminophen 500 MG TAB ONE (08:31)
[2020-03-17] MEDS ORDERED: Acetaminophen 325 MG Suppository ONE ×2 (08:32→09:11)
[2020-03-17] MEDS ORDERED: Acetaminophen 650 MG Suppository ONE ×2 (08:32→09:11)
[2020-03-17] MEDS ORDERED: Rocuronium Bromide 10 MG/ML (10ML VIAL) ONE (08:35)
[2020-03-17] MEDS ORDERED: cefTRIAXone\\ROCEPHIN 2 GM VIAL ONE (08:36)
[2020-03-17 08:37] LABS: Actual Bicarbonate (HCO3a) 20.9 mEq/L (22-28); Analyzer IN Cardio ER; Base Excess (BEa) -2.8 mEq/L (-2.0 to +3.0); CO2 Tension 33.4 mmHg (35.0-45.0); Calcium, Ionized (arterial) 1.14 mmol/L (1.12-1.30); Carboxyhemoglobin (COHb) 0.2 gm% (0.0-3.0); Hemoglobin (Hb) 13.4 g/dL (14.0-18.0); O2 Tension (PaO2), arterial 161.5 mmHg (> 80.0); pH, Arterial 7.42 (7.35-7.45)
[2020-03-17 08:40] LABS: Puncture Site L.R.
[2020-03-17] MEDS ORDERED: Vancomycin 1.5 GRAM/300 ML BAG 1.5 GM in Premix Bag 1 BAG IVPB SCH (08:45)
[2020-03-17 08:51] LABS: Hemoglobin 13.7 g/dL (14.0-18.0); Mean Corpuscular HGB CONC 33.1 g/dL (32.0-36.0); Mean Corpuscular Hemoglobin 32.2 pg (27.0-31.0); Mean Corpuscular Volume 97.3 fL (78.0-98.0); Mean Platelet Volume 8.3 fL (7.4-10.4); Platelet Count 282 thou/uL (130-400); RBC Distribution Width 12.6 % (11.5-14.5); Red Blood Cell (RBC) Count 4.26 mill/uL (4.70-6.10); White Blood Cell (WBC) Count 24.7 thou/uL (4.8-10.8)
[2020-03-17 08:54] LABS: ALT (SGPT) 47 U/L (8-55); AST (SGOT) 62 U/L (5-34); Albumin 3.1 g/dL (3.4-4.8); Alkaline Phosphatase 73 U/L (40-110); Anion Gap 15 mmol/L (10-20); BUN (Urea Nitrogen) 30 mg/dL (8.4-25.7); Bilirubin, Total 0.9 mg/dL (0.2-1.2); Calc. Creatinine Clearance 0 mL/min (70-130); Calcium 8.4 mg/dL (7.8-10.44); Carbon Dioxide 21 mmol/L (23-31); Chloride 101 mmol/L (98-107); Estimated GFR-MDRD 69; Globulin 5.5 g/dL (2.4-3.5); Glucose 128 mg/dL (80-115); Potassium 4.4 mmol/L (3.5-5.1); Protein, Total 8.6 g/dL (5.8-8.1); Sodium 133 mmol/L (136-145)
[2020-03-17] MEDS ORDERED: fentaNYL Citrate/PF 2,000 MCG in Sodium Chloride 0.9% 60 ML IV SCH (09:00)
[2020-03-17 09:04] LABS: Band 9 % (5-11); Lymphocytes 20 % (21-51); MDiff Complete? YES; Metamyelocyte 1 % (0-0); Monocytes 6 % (0-10); Myelocyte 2 % (0-0); Neutrophil 56 % (42-75); RBC Morphology Normal; Reactive Lymphocytes 6 % (0-10)
--- NOTE | 2020-03-17 09:14 | RAD ---
XR Chest 1 View Portable HISTORY: Respiratory failure COMPARISON: 01/31/2020 FINDINGS: There is an endotracheal tube with tip just below the level of the clavicular heads a nasog astric tube is seen which can be traced below the level of the diaphragm with tip excluded from the film. There is continued elevation the right hemidiaphragm with a small right pleural effusion. The left maeve ng is clear. The heart size normal. No pneumothoraces are seen.
[2020-03-17 09:29] LABS: Bacteria/HPF 4+ HPF (None Seen); Bilirubin Negative (Negative); Blood, Urine 3+ (Negative); Clarity Extra Turbid (Clear); Glucose, Urine (Dipstick) Normal (Negative); Ketone, Urine Negative (Negative); Leukocyte 500 Leu/uL (Negative); Nitrite Negative (Negative); Protein, Urine (Dipstick) 50 mg/dL (Neg-Trace); RBC/HPF Greater than 50 HPF (0-3); Specific Gravity, Urine 1.017 (1.002-1.036); Squamous Epithelial None Seen HPF (0-3); WBC/HPF Greater than 50 HPF (0-3); pH, Urine 6.5 (5.0-9.0)
[2020-03-17] MEDS ORDERED: Bisacodyl 5 MG TAB PO PRN (09:42)
[2020-03-17] MEDS ORDERED: Acetaminophen 650 MG Suppository PR PRN (09:42)
[2020-03-17] MEDS ORDERED: Ondansetron PF 4 MG/2 ML Vial IVP PRN (09:42)
[2020-03-17] MEDS ORDERED: Bisacodyl 10 MG SUPP PR PRN (09:42)
[2020-03-17] MEDS ORDERED: Heparin 1,000 UNITS/ML VIAL ONE (09:59)
[2020-03-17] MEDS ORDERED: Norepinephrine 8 MG/0.9% NS 250 ML ONE (10:20)
[2020-03-17] MEDS ORDERED: EPINEPHrine 1 MG/ML AMP ONE (10:25)
[2020-03-17] MEDS ORDERED: EPINEPHrine 1 MG/10 ML Abboject SYRINGE ONE (10:26)
--- NOTE | 2020-03-17 10:50 | PDOC.HHP ---
Hospitalist HPI - History of Present Illness Altered mental status History of Present Illness: Patient is a 64-year-old gentleman who is a group home resident. He is quadriplegic. Apparently his baseline mental status is that he is awake, alert and conversant. Today morning he was found to be unresponsive and with altered mental status. Patient was brought to the emergency room. In the emergency r oom, he was found to be febrile, tachycardic and tachypneic. Rectal T-max was 106 F. He was intubated for airway protection. He has been started on antibiotics empirically. He was also noted to have low blood pressures, arrangements are being made for a central line at this time to infuse vasopressors. ED Course: BP: 87/54, Pulse: 115, Resp: 12, Temp: 101.2 (Rectal), Pain: UTR, O2 sat: 100 on (Ventilator), End-Tidal CO2: 41, Time: 03/17/2020 10:17. Hospitalist ROS - Review of Systems ROS unobtainable: due to endotracheal tube - Medication Medications: Allergies: No known drug allergies. Current medications: scopolamine base FriMar 17, 2020 08:29 EMILIO Patterson, Luke patch 3 day : Strength - 1 mg/3 day : TRANSDERMAL Patient Dose: Unknown. tamsulosin FriMar 17, 2020 08:29 EMILIO Patterson, Luke capsule : Strength - 0.4 mg : ORAL Patient Dose: Unknown. Tylenol-Codeine #3 FriMar 17, 2020 08:29 EMILIO Patterson, Luke tablet : Strength - 300 mg-30 mg : ORAL Patient Dose: Unknown. Zanaflex FriMar 17, 2020 08:30 EMILIO Patterson, Luke capsule : Strength - 4 mg : ORAL Patient Dose: Unknown. Hospitalist History - Past Medical History RESIDENT CAREGIVER: reports: Other (Quadriplegia, central cord syndrome at C5) - Past Surgical History Other Surgical History: Could not be obtained - Family History Other Family History: Could not be obtained - Social History Other Social History: Could not be obtained - Exam General - other findings: Intubated, mechanically ventilated Eye: anicteric sclera ENT - other findings: Endotracheal tube Neck: no thyromegaly, no lymphadenopathy Heart - other findings: S1, S2, regular and tachycardic Respiratory: CTAB Gastrointestinal: soft, non-tender, normal bowel sounds Extremities: no cyanosis Neurological - other findings: Quadriplegia. Full neurological examination could not be performed. Psychiatric - other findings: Unable to assess Hospitalist Results - Labs Result Diagrams: 03/17/20 08:19 03/17/20 08:19 Lab results: WBC 24.7 thou/uL (4.8-10.8) H 03/17/20 08:19 Hgb 13.7 g/dL (14.0-18.0) L 03/17/20 08:19 Hct 41.4 % (42.0-52.0) L 03/17/20 08:19 MCV 97.3 fL (78.0-98.0) 03/17/20 08:19 Plt Count 282 thou/uL (130-400) 03/17/20 08:19 Band Neuts % (Manual) 9 % (5-11) 03/17/20 08:19 ABG pH 7.42 (7.35-7.45) 03/17/20 08:32 ABG pCO2 33.4 mmHg (35.0-45.0) L 03/17/20 08:32 ABG pO2 161.5 mmHg (> 80.0) H 03/17/20 08:32 Sodium 133 mmol/L (136-145) L 03/17/20 08:19 Potassium 4.4 mmol/L (3.5-5.1) 03/17/20 08:19 Chloride 101 mmol/L (98-107) 03/17/20 08:19 Carbon Dioxide 21 mmol/L (23-31) L 03/17/20 08:19 BUN 30 mg/dL (8.4-25.7) H 03/17/20 08:19 Creatinine 1.28 mg/dL (0.7-1.3) 03/17/20 08:19 Glucose 128 mg/dL (80-115) H 03/17/20 08:19 Lactic Acid 1.5 mmol/L (0.5-2.2) 03/17/20 08:19 Calcium 8.4 mg/dL (7.8-10.44) 03/17/20 08:19 Total Bilirubin 0.9 mg/dL (0.2-1.2) 03/17/20 08:19 AST 62 U/L (5-34) H 03/17/20 08:19 ALT 47 U/L (8-55) 03/17/20 08:19 Alkaline Phosphatase 73 U/L (40-110) 03/17/20 08:19 Serum Total Protein 8.6 g/dL (5.8-8.1) H 03/17/20 08:19 Albumin 3.1 g/dL (3.4-4.8) L 03/17/20 08:19 Urine Ketones Negative mg/dL (Negative) 03/17/20 09:08 Urine Blood 3+ (Negative) A 03/17/20 09:08 Urine Nitrite Negative (Negative) 03/17/20 09:08 Ur Leukocyte Esterase 500 [place]/uL (Negative) A 03/17/20 09:08 Urine RBC Greater than 50 HPF (0-3) A 03/17/20 09:08 Urine WBC Greater than 50 HPF (0-3) A 03/17/20 09:08 Ur Squamous Epith Cells None Seen HPF (0-3) 03/17/20 09:08 Urine Bacteria 4+ HPF (None Seen) A 03/17/20 09:08 - EKG Interpretation EKG: EKG by my review shows sinus tachycardia - Radiology Interpretation Chest x-ray Status: image reviewed by me Additional Comment: XR Chest 1 View Portable HISTORY: Respiratory failure COMPARISON: 01/31/2020 FINDINGS: There is an endotracheal tube with tip just below the level of the clavicular heads a nasog astric tube is seen which can be traced below the level of the diaphragm with tip excluded from the film. There is continued elevation the right hemidiaphragm with a small right pleural effusion. The left maeve ng is clear. The heart size normal. No pneumothoraces are seen. Hospitalist H&P A/P - Problem (1) Septic shock Code(s): A41.9 - SEPSIS, UNSPECIFIED ORGANISM; R65.21 - SEVERE SEPSIS WITH SEPTIC SHOCK Status: Acute (2) UTI (urinary tract infection) Status: Acute (3) Hyponatremia Code(s): E87.1 - HYPO-OSMOLALITY AND HYPONATREMIA Status: Acute (4) Acute respiratory failure Code(s): J96.00 - ACUTE RESPIRATORY FAILURE, UNSP W HYPOXIA OR HYPERCAPNIA Status: Acute (5) Quadriplegia Code(s): G82.50 - QUADRIPLEGIA, UNSPECIFIED Status: Chronic - Plan Plan: So far the only evidence of infection appears to be in the urinary tract. Urine sample is positive for leukocyte esterase and bacteria. Patient initially received ceftriaxone and vancomycin. I will continue vancomycin and start meropenem until cultures are back. Rapid COVID-19 test is also pending. Pulmonary and critical care medicine being consulted for vent management and management in CCU. Patient will be started on pressors once a central line is placed. Level of risk: Moderate Level of complexity: Moderate Estimated length of stay in the hospital: Greater than 2 midnights Primary CARE provider: Dr. Saúl Ernst
--- NOTE | 2020-03-17 11:02 | RAD ---
EXAM: Single view of the chest HISTORY: Central line placement COMPARISON: 03/17/2020 at 8:59 AM FINDINGS: Single view of the chest shows a normal sized cardiomediastinal silhouette. There is a lef t subclavian central venous catheter with its tip in the superior vena cava. No pneumothorax is seen. The endotracheal tube and NG tube are unchanged in position. There is stable elevation right h emidiaphragm with a questionable right pleural effusion. No acute osseous abnormality. IMPRESSION: Status post central line placement without evidence of complication.
[2020-03-17 11:04] LABS: SARS-CoV-2 NAA Rapid Test Not Detected (NotDetected)
[2020-03-17] MEDS ORDERED: Piperacillin/Tazobactam 3.375 GM in Sodium Chloride 0.9% 100 ML IVPB SCH (12:00)
[2020-03-17] MEDS ORDERED: Meropenem 1 GM in Sodium Chloride 0.9% 100 ML IVPB SCH (12:00)
--- NOTE | 2020-03-17 12:25 | CT ---
EXAM: CT brain without contrast HISTORY: Altered mental status COMPARISON: 01/21/2020 TECHNIQUE: Multiple contiguous axial images were obtained and a CT of the brain without contrast. FINDINGS: There are subtle scattered hypodensities in the subcortical and periventricular white matte r consistent with small vessel ischemic disease. There is no evidence of hydrocephalus, intracranial hemorrhage, or extra-axial fluid collection. The calvarium and overlying soft tissues are unremarkable. The visualized paranasal sinuses and masto id air cells are well aerated. IMPRESSION: No evidence of acute intracranial abnormality
[2020-03-17] MEDS: Sodium Chloride 0.9% 1,000 ML IV SCH ×2 (12:51→19:39)
[2020-03-17] MEDS: Hydrocortisone Sod Succ/PF 100 mg/2 ml Vial IVP SCH ×2 (12:55→17:06)
[2020-03-17] MEDS: MEROPENEM 1 GM/50 ML 1 GM in Premix Bag 1 BAG IVPB SCH ×2 (12:55→19:39)
--- NOTE | 2020-03-17 14:05 | CON ---
DATE OF CONSULTATION: 03/17/2020 HISTORY OF PRESENT ILLNESS: Desmond Galvan is a 64-year-old unfortunate gentleman, paraplegic, recently hospitalized following traumatic injury at C5. He was in the [facility] in [facility] when apparently there was altered mental status, hypertensive, febrile. There is no advanced directive on his chart as per the ER physician. On arrival, he was in shock, hypertension. He was intubated and started on Levophed and IV fluids. We are able to review his most recent hospitalization, which has been no longer than about a month ago, 02/03/2020. It states that Mr. Galvan was seen by Neurosurgery, had facial laceration, posterior cervical laminectomy C3-C5. He at that time was seen by Trauma Surgery with additional past medical history of apparently hypertension. He was also found to have cocaine in his screen. I do not see any family members to get additional information, but apparently, there is some concern about history of previous chronic lung disease. PAST SURGICAL HISTORY: Tonsillectomy. Alcohol and drug abuse apparently nothing verified. MEDICATIONS: His medicines from the [facility] include; 1. Flexeril 10. 2. Lyrica 75. 3. Scop patch. 4. Flomax 0.4. 5. Tylenol. ALLERGIES: NONE. PHYSICAL EXAMINATION: VITAL SIGNS: He is on Levophed. Pulse 110, blood pressure 110/30, sats are 93%, respirations 18. BACK: Superficial decubitus ulcer. CHEST: No wheezing. No crackles. CARDIAC: Normal S1, S2. ABDOMEN: Soft. LABORATORY AND DIAGNOSTIC DATA: His urine shows pus. White count , H and H of 13 and 41, platelet count is normal. PO2 is 161, pCO2 of . Sodium 133, creatinine 1.28. Urine shows WBCs greater than 50. ASSESSMENT: 1. Sepsis. 2. Probably UTI. 3. Shock. 4. Azotemia, prerenal. 5. Recent cervical surgery. 6. Quadriplegic. PLAN: He is started on broad-spectrum antibiotics, stress dose of steroids. Continue IV fluids. Continue supportive care. We will follow. Critical care time, 45 minutes. Job ID: [id number]
[2020-03-17] MEDS ORDERED: Norepinephrine 8 MG/0.9% NS 250 ML IVPB SCH (14:30)
[2020-03-17] MEDS: Vancomycin 1 GM in Premix Bag 1 BAG IVPB SCH (21:04)
[2020-03-18] MEDS: Hydrocortisone Sod Succ/PF 100 mg/2 ml Vial IVP SCH ×5 (00:32→23:38)
[2020-03-18] MEDS: MEROPENEM 1 GM/50 ML 1 GM in Premix Bag 1 BAG IVPB SCH ×3 (03:02→19:28)
[2020-03-18 04:00] LABS: Anion Gap 13 mmol/L (10-20); BUN (Urea Nitrogen) 22 mg/dL (8.4-25.7); Calc. Creatinine Clearance 109 mL/min (70-130); Calcium 8.2 mg/dL (7.8-10.44); Carbon Dioxide 20 mmol/L (23-31); Chloride 109 mmol/L (98-107); Estimated GFR-MDRD Greater than 90; Glucose 124 mg/dL (80-115); Sodium 138 mmol/L (136-145)
[2020-03-18 05:04] LABS: Band 24 % (5-11); Hemoglobin 11.2 g/dL (14.0-18.0); Lymphocytes 4 % (21-51); MDiff Complete? YES; Mean Corpuscular HGB CONC 32.6 g/dL (32.0-36.0); Mean Corpuscular Hemoglobin 32.6 pg (27.0-31.0); Mean Platelet Volume 7.9 fL (7.4-10.4); Monocytes 4 % (0-10); Neutrophil 68 % (42-75); Platelet Count 253 thou/uL (130-400); RBC Distribution Width 12.8 % (11.5-14.5); Red Blood Cell (RBC) Count 3.44 mill/uL (4.70-6.10); White Blood Cell (WBC) Count 31.2 thou/uL (4.8-10.8)
[2020-03-18] MEDS: Sodium Chloride 0.9% 1,000 ML IV SCH ×2 (07:47→17:29)
[2020-03-18] MEDS ORDERED: Prevnar 13-Val Conj/PF 0.5 ML SYRINGE IM ONE (09:00)
[2020-03-18] MEDS: Enoxaparin Sodium 40 MG/0.4 ML SYRINGE SC SCH (09:16)
[2020-03-18] MEDS: Vancomycin 1 GM in Premix Bag 1 BAG IVPB SCH ×2 (09:16→21:11)
--- NOTE | 2020-03-18 11:08 | PRG ---
DATE OF SERVICE: 03/18/2020 SUBJECTIVE: Mr. Galvan continues to receive ventilatory support. This morning, he will awake and nod his head and follows very simple commands. He denies pain. PHYSICAL EXAMINATION: VITAL SIGNS: Blood pressure 163/95, heart rate 73, saturation 100%. He is on FiO2 of 40 with rate of 12. GENERAL/HEENT: He is an elderly gentleman, intubated. He will nod his head. He has arcus senilis. I cannot evaluate his oropharynx. He has no JVD. LUNGS: Coarse rhonchi without wheezing or rales or symmetrical breath sounds. HEART: Regular rate and rhythm. ABDOMEN: Mildly protuberant, but soft. There is no guarding or rebound. Bowel sounds are heard. EXTREMITIES: 1+ edema. He has some toes, which are quite dark, but warm without obvious gangrenous findings. His urine via Kerns is very light pink tinged. LABORATORY DATA: White count 31,200, hemoglobin is 11.2, platelet count 253,000. He has 68 segs and 24 bands. Electrolytes notable for a BUN of 22 and a creatinine of 0.7. Urine and blood cultures, both positive for MRSA. IMPRESSION: 1. MRSA bacteremia, on vancomycin with dosing per pharmacy. This is presumed due to indwelling Kerns catheter without an obvious alternative site. From a sepsis perspective, he is improved and has received hydration without the need for high-dose pressors. Neurologically, he is becoming more awake and I would anticipate that we can begin weaning. 2. Status post fall on 02/03/2020 with C5 fracture requiring a posterior cervical laminectomy at the C3-C5 levels. Unfortunately, he was at the care home following this. 3. Volume depletion, improved. PLAN: He is improving with current antibiotics. Urine is not purulent today, and he is no longer hypotensive. I am going to begin weaning and hopefully we can get him extubated either later today or tomorrow. Unfortunately, he is still going to need long-term care home care, but particular attention to wound prevention, Kerns care, etc. Critical care time, 33 minutes. Job ID: [id number]
--- NOTE | 2020-03-18 11:13 | EKG ---
Test Reason : Blood Pressure : / mmHG Vent. Rate : 124 BPM Atrial Rate : 124 BPM P-R Int : 128 ms QRS Dur : 082 ms QT Int : 352 ms P-R-T Axes : 063 063 -27 degrees QTc Int : 505 ms Sinus tachycardia Left ventricular hypertrophy with repolarization abnormality ST depression inferior and lateral leads Abnormal ECG Confirmed by PATEL PATEL MD ([id number]), primer expeditor and drier NILAY MADRIGAL ([id number]) on 03/18/2020 11:13:13 AM Referred By: Confirmed By:PATEL PATEL MD
--- NOTE | 2020-03-18 13:37 | PDOC.HOSPP ---
- Subjective Encounter Date: 03/18/20 Encounter Time: 10:00 Subjective: Patient seen for follow-up regarding sepsis. He is intubated, unable to complete review of systems. - Objective Vital Signs & Weight: Vital Signs (12 hours) Temp Pulse Resp BP Pulse Ox 03/18/20 12:42 76 128/78 03/18/20 12:00 97.7 F 11 L 03/18/20 10:40 107 H 107/66 03/18/20 10:00 12 03/18/20 08:00 98.6 F 12 100 03/18/20 07:38 72 119/76 03/18/20 06:00 12 03/18/20 04:00 97.9 F 12 03/18/20 02:34 72 93/60 03/18/20 02:00 12 Weight Admit Weight 157 lb Weight 159 lb 6.307 oz Most Recent Monitor Data Heart Rate from ECG 74 NIBP 134/77 NIBP BP-Mean 97 Respiration from ECG 13 SpO2 100 I&O: 03/17/20 03/18/20 03/19/20 06:59 06:59 06:59 Intake Total 2135 Output Total 323 495 Balance 1812 -495 Result Diagrams: 03/18/20 03:21 03/18/20 03:21 Additional Labs: I reviewed patient's labs and MAR EKG Reviewed by me: Yes (Telemetry: Normal sinus rhythm) Hospitalist ROS - Review of Systems ROS unobtainable: due to endotracheal tube - Medication Medications: Active Medications Generic Name Dose Route Start Last Admin Trade Name Freq PRN Reason Stop Dose Admin Enoxaparin Sodium 40 mg 03/18/20 09:00 03/18/20 09:16 Enoxaparin Sodium 40 Mg/0.4 Ml Syringe SC 40 mg 0900 JEF Administration Hydrocortisone Sodium Succinate 50 mg 03/17/20 12:00 03/18/20 12:06 Hydrocortisone Sod Succ/Pf 100 Mg/2 Ml Vial IVP 03/24/20 12:01 50 mg Q6HR JEF Administration Fentanyl Citrate 2,000 mcg/ 100 mls @ 0 mls/hr 03/17/20 09:00 03/18/20 01:42 Sodium Chloride IV 04/16/20 09:00 100 mls INF JEF Administration Protocol Per Protocol Sodium Chloride 1,000 mls @ 100 mls/hr 03/17/20 09:45 03/18/20 07:47 Normal Saline 0.9% IV Not Given .Q10H JEF Vancomycin HCl 1 gm/ Device 200 mls @ 200 mls/hr 03/17/20 21:00 03/18/20 09:16 IVPB 200 mls 0900,2100 JEF Administration Meropenem 1 gm/ Device 50 mls @ 200 mls/hr 03/17/20 12:00 03/18/20 12:06 IVPB 50 mls 0400,1200,2000 JEF Administration - Exam General Appearance: awake alert General - other findings: Intubated ENT: normocephalic atraumatic ENT - other findings: ETT tube Neck: no thyromegaly, no lymphadenopathy Heart: RRR Respiratory: CTAB Gastrointestinal: soft, normal bowel sounds Neurological - other findings: Quadriplegia Psychiatric - other findings: Unable to assess Hosp A/P (1) Sepsis Code(s): A41.9 - SEPSIS, UNSPECIFIED ORGANISM Status: Acute (2) UTI (urinary tract infection) Status: Acute (3) Acute respiratory failure Code(s): J96.00 - ACUTE RESPIRATORY FAILURE, UNSP W HYPOXIA OR HYPERCAPNIA Status: Acute (4) Quadriplegia Code(s): G82.50 - QUADRIPLEGIA, UNSPECIFIED Status: Chronic (5) Hyponatremia Code(s): E87.1 - HYPO-OSMOLALITY AND HYPONATREMIA Status: Resolved - Plan Urine culture growing gram-positive cocci, preliminary blood cultures growing enterococcus faecalis and MRSA. Continue IV vancomycin and meropenem. Hyponatremia resolved. COVID-19 test negative. PCCM following.
[2020-03-18 20:29] LABS: Vancomycin, Trough 13.7 ug/mL
[2020-03-18] MEDS: Vancomycin HCl 1.25 GM in Sodium Chloride 0.9% 250 ML 250 ML IVPB SCH (21:19)
[2020-03-19 04:41] LABS: Anion Gap 12 mmol/L (10-20); BUN (Urea Nitrogen) 21 mg/dL (8.4-25.7); Calc. Creatinine Clearance 131 mL/min (70-130); Calcium 8.2 mg/dL (7.8-10.44); Carbon Dioxide 22 mmol/L (23-31); Chloride 106 mmol/L (98-107); Estimated GFR-MDRD Greater than 90; Glucose 112 mg/dL (80-115); Sodium 137 mmol/L (136-145)
[2020-03-19 04:44] LABS: Band 5 % (5-11); Hemoglobin 10.5 g/dL (14.0-18.0); Lymphocytes 3 % (21-51); MDiff Complete? YES; Mean Corpuscular HGB CONC 32.8 g/dL (32.0-36.0); Mean Corpuscular Hemoglobin 32.3 pg (27.0-31.0); Mean Corpuscular Volume 98.5 fL (78.0-98.0); Mean Platelet Volume 8.1 fL (7.4-10.4); Monocytes 1 % (0-10); Neutrophil 91 % (42-75); Platelet Count 255 thou/uL (130-400); Platelet Morphology Comment Appears Adequate; RBC Distribution Width 12.5 % (11.5-14.5); RBC Morphology Normal; Red Blood Cell (RBC) Count 3.24 mill/uL (4.70-6.10); White Blood Cell (WBC) Count 39.1 thou/uL (4.8-10.8)
[2020-03-19] MEDS: Hydrocortisone Sod Succ/PF 100 mg/2 ml Vial IVP SCH ×3 (05:13→18:11)
[2020-03-19] MEDS: MEROPENEM 1 GM/50 ML 1 GM in Premix Bag 1 BAG IVPB SCH ×2 (05:13→11:36)
[2020-03-19] MEDS: Sodium Chloride 0.9% 1,000 ML IV SCH (09:02)
[2020-03-19] MEDS: Enoxaparin Sodium 40 MG/0.4 ML SYRINGE SC SCH (09:02)
[2020-03-19] MEDS: Vancomycin HCl 1.25 GM in Sodium Chloride 0.9% 250 ML 250 ML IVPB SCH ×2 (09:50→21:48)
--- NOTE | 2020-03-19 12:05 | PRG ---
DATE OF SERVICE: SUBJECTIVE: Mr. Galvan is done well following extubation. He has slightly dysarthric speech, but I think some of that is dryness to his mouth. He has no complaint except asking for the TV controller despite the fact that he is quadriplegic. PHYSICAL EXAMINATION: VITAL SIGNS: Blood pressure 155/74, heart rate is 61, saturation 100% on nasal oxygen. GENERAL: He awakens easily, but slightly confused. I think some of this is chronic. He appears much older than his stated age. HEENT: There is no obvious pathology within the oropharynx. NECK: Without JVD. LUNGS: Show bilateral rhonchi, but no wheezing. HEART: Regular rate and rhythm. ABDOMEN: Soft. He has no organomegaly. EXTREMITIES: He has no edema. LABORATORY DATA: White count 39,000, up significantly, although his percent bands are down from 24 to 5; hemoglobin is 10.5; platelet count 255,000. Electrolytes include sodium 137, potassium 3, chloride is 106, CO2 22, BUN 21, creatinine 0.6. IMPRESSION: 1. Respiratory failure, presumed secondary to sepsis with methicillin-resistant Staphylococcus aureus. 2. Status post fall with C5 fracture and resultant quadriplegia. PLAN: At this point, we will continue antibiotics and dose based on vancomycin levels. Unfortunately, there is not a whole lot of recovery, which I anticipate. He could be moved to step-down unit with goal that ultimately he returns to the senior care facility. Long-term prognosis is very poor. Job ID: [id number]
--- NOTE | 2020-03-19 12:06 | PDOC.HOSPP ---
- Subjective Encounter Date: 03/19/20 Encounter Time: 09:30 Subjective: Pt seen for followup re: sepsis. Reports he feels better. - Objective Vital Signs & Weight: Vital Signs (12 hours) Temp Pulse Ox 03/19/20 11:00 98.2 F 03/19/20 07:41 100 03/19/20 07:00 97.6 F 03/19/20 04:00 97.7 F 03/19/20 00:00 97.6 F Weight Admit Weight 157 lb Weight 160 lb 14.999 oz Most Recent Monitor Data Heart Rate from ECG 52 NIBP 133/70 NIBP BP-Mean 101 Respiration from ECG 10 SpO2 100 I&O: 03/18/20 03/19/20 03/20/20 06:59 06:59 06:59 Intake Total 2135 2598 120 Output Total 323 1705 420 Balance 1812 893 -300 Result Diagrams: 03/19/20 03:41 03/19/20 03:41 Additional Labs: Labs and MARs reviewed by la Hospitalist ROS - Review of Systems Constitutional: reports: weakness. denies: fever, chills, sweats, malaise Cardiovascular: denies: chest pain, palpitations, orthopnea, paroxysmal noc. dyspnea, edema, light headedness - Medication Medications: Active Medications Generic Name Dose Route Start Last Admin Trade Name Freq PRN Reason Stop Dose Admin Enoxaparin Sodium 40 mg 03/18/20 09:00 03/19/20 09:02 Enoxaparin Sodium 40 Mg/0.4 Ml Syringe SC 40 mg 0900 JEF Administration Hydrocortisone Sodium Succinate 50 mg 03/17/20 12:00 03/19/20 11:36 Hydrocortisone Sod Succ/Pf 100 Mg/2 Ml Vial IVP 03/24/20 12:01 50 mg Q6HR JEF Administration Fentanyl Citrate 2,000 mcg/ 100 mls @ 0 mls/hr 03/17/20 09:00 03/18/20 01:42 Sodium Chloride IV 04/16/20 09:00 100 mls INF JEF Administration Protocol Per Protocol Sodium Chloride 1,000 mls @ 100 mls/hr 03/17/20 09:45 03/19/20 09:02 Normal Saline 0.9% IV 1,000 mls .Q10H JEF Administration Meropenem 1 gm/ Device 50 mls @ 200 mls/hr 03/17/20 12:00 03/19/20 11:36 IVPB 50 mls 0400,1200,2000 JEF Administration Vancomycin HCl 1.25 gm/ Sodium 250 mls @ 166.667 mls/hr 03/18/20 22:00 03/19/20 09:50 Chloride IVPB 250 mls 1000,2200 JEF Administration - Exam General Appearance: awake alert Eye: anicteric sclera ENT: moist mucosa Neck: no lymphadenopathy Heart: RRR Respiratory: CTAB Gastrointestinal: soft Neurological - other findings: quadriparesis Psychiatric: normal affect, normal behavior Hosp A/P (1) Sepsis Code(s): A41.9 - SEPSIS, UNSPECIFIED ORGANISM Status: Acute (2) UTI (urinary tract infection) Status: Acute (3) Bacteremia Code(s): R78.81 - BACTEREMIA Status: Acute (4) Acute respiratory failure Code(s): J96.00 - ACUTE RESPIRATORY FAILURE, UNSP W HYPOXIA OR HYPERCAPNIA Status: Acute (5) Quadriplegia Code(s): G82.50 - QUADRIPLEGIA, UNSPECIFIED Status: Chronic (6) Hyponatremia Code(s): E87.1 - HYPO-OSMOLALITY AND HYPONATREMIA Status: Resolved - Plan Urine culture grew MRSA, blood cultures growing enterococcus faecalis and MRSA. Continue IV vancomycin and meropenem. DC meropenem once white count improves. Consult ID. Hyponatremia resolved. Replace potassium. COVID-19 test negative. Transfer to medical floor.
--- NOTE | 2020-03-19 17:18 | CT ---
CT Stone Protocol 03/19/2020 5:06 PM HISTORY: Urosepsis. Recent UTI. COMPARISON: 01/21/2020 Technique: Multiple contiguous axial CT images are obtained through the abdomen and pelvis without IV contrast. Coronal reformats are provided. FINDINGS: This examination is limited for the evaluation of solid organs and vascular structures due to the lac k of intravenous contrast. Lower Chest: Vascular calcifications are seen in the coronary arteries. Trace right pleural effusion is present with consolidation right lung base which may represent passive atelectasis, but pneumonia right lung base is a possibility. Atelectasis is present at the left lung base. Abdomen: Liver: Artifact through the liver secondary to arms down by the side, but no focal hepatic lesion is appreciated. Gallbladder: Decompressed Pancreas: Grossly normal nonenhanced CT appearance. Spleen: Grossly within normal limits allowing for artifact and lack of intravenous contrast. Adrenals: Grossly normal nonenhanced CT appearance. Kidneys: No renal calculi are visualized, and there is no evidence of hydronephrosis. Ureters: No ureteral calculus is seen.. Pelvis: Urinary bladder: Single punctate focus of gas is seen in the nondependent portion of the urinary blad cherelle. This may be related to recent catheterization. Clinical correlation is recommended. Kerns catheter noted on prior exam has been removed. Reproductive Organs: No pelvic masses. Lymph Nodes: No enlarged lymph nodes. Bowel: Normal caliber. Appendix: The appendix is normal in caliber. Peritoneum: Trace free fluid in the pelvis. Retroperitoneum: within normal limits. Vessels: Vascular calcifications again seen in the abdominal aorta and iliac arteries.. Abdominal Wall: Areas of mild subcutaneous edema. Bones: Degenerative changes in the spine similar to prior exam. Again noted is the osseous excrescenc e arising from the medial right iliac bone extending into the iliacus muscle. In addition, there is area of heterotopic ossification in the right gluteal musculature. These findings may be sequela of p rior injury. IMPRESSION: 1. No renal or ureteral calculi are seen bilaterally. 2. Minimal right pleural effusion with consolidation right lung base. While this area of consolidatio n may be attributable to passive atelectasis, associated pneumonia right lung base cannot be excluded. 3. Punctate focus of gas in urinary bladder which may be related to recent catheterization. Clinical correlation recommended.
--- NOTE | 2020-03-19 18:50 | CON ---
DATE OF CONSULTATION: 03/19/2020 REASON FOR CONSULTATION: Bacteremia, urosepsis. 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 He underwent surgical intervention by Dr. Taylor with a posterior cervical laminectomy C3 through C6. He had arthrodesis C4-C5 and autograft as well. He was discharged in January to a [facility] with pretty extensive quadriplegia. He was discharged with a Kerns catheter to the [facility] and he never had a voiding trial attempted, so now he comes in with urosepsis and bacteremia. He was noted to have change in mental state and fever at the [facility] and was transferred over to [facility] Emergency Room. On arrival, his BP was 120/90, pulse 124, respirations 48, and O2 saturation 100. He was quadriplegic. He appeared nontoxic. He was awake, but did not respond to verbal stimuli. There was increased work of breathing, tachypneic. Heart and abdomen examination was normal. Initial findings also included white cell count of 24,000, hemoglobin 13, platelets 282 with 20% lymphocytes, 56% neutrophils, 29% bands. The next day, his white cell count is up to 31,000 with 24% bands. Initial pH 7.42, pCO2 of 33, PO2 of 161. Creatinine was 1.28, down to 0.6 at this time. Albumin 3.1. Urinalysis with markedly abnormal with greater than 50 wbc's and rbc's. The cultures now with E faecalis and MRSA two sets of blood cultures and the same organisms isolated plus Pseudomonas aeruginosa from urine sample from the same collection date. Imaging studies included a brain CT with no acute intracranial abnormality and a chest x-ray with central line placement, but no complications noted. Currently, Mr. Galvan has been fed. He is able to eat without choking. He is awake, kind of mumbles a little bit, but he seems to understand things, was watching television. He denies headaches. No dyspnea. A little bit of cough. He does not have much sensation below the diaphragm. MEDICAL HISTORY: Quadriplegia following central cord injury after he fell from a tree during a job cutting trees. No other medical history is recorded. ALLERGIES: NONE. CURRENT MEDICATIONS: 1. Dulcolax. 2. Lovenox. 3. Solu-Cortef. 4. Meropenem. 5. Levophed. 6. Vancomycin. PHYSICAL EXAMINATION: Patient has defervesced since admission. VITAL SIGNS: BP 120/61, heart rate 62, respiratory rate 16, and O2 saturation 99% on room air. SKIN: With stage II areas of ulceration in presacral region quite small and shallow with healthy-appearing base. He has a central line in the IJ position. No lymphadenopathy. HEENT: Ocular movements with kind of jean baptiste sclerae. Pupils are reactive. Still quite a few teeth in place with marked decay and gum disease. NECK: No jugular vein distention. LUNGS: With symmetric air entry. HEART: S1, S2. Regular rate. ABDOMEN: Soft without distention. EXTREMITIES: Quadriplegia, pretty complete. He can lift the shoulders, but that is about it. He has some edema in the lower extremities, but no areas of skin breakdown. Pulses 1+ in dorsalis pedis. NEUROLOGIC: He is awake, establishes eye contact, and is able to have a conversation with quite a bit of limitation. LABORATORY: WBC count 39,000, bands are down to 5. Creatinine 0.6. Cortisol 23. ASSESSMENT: 1. Quadriplegia, complete following accidental fall from a tree while working in December, status post fixation. No improvement in function thus far. 2. Urosepsis associated with Kerns catheterization with polymicrobial erna, including Enterococcus and methicillin-resistant Staphylococcus aureus bacteremia. There was also Pseudomonas aeruginosa identified in the sample. Patient has a condom catheter now and Kerns catheter has been removed. DISCUSSION: Patient needs abdomen and pelvis CT stone protocol after that and monitor for urinary retention, may need either suprapubic catheter placement or in-and-out catheterization depending on the success of voiding trial. In terms of antimicrobial therapy, DC meropenem and continue with vancomycin alone, probably treat for about 2 weeks approximately. Repeat blood cultures. If the blood cultures remain positive, then we will have to extend the duration of therapy. Other sites of involvement are not apparent at this time. He does not have any devices and will be ordered if not yet ordered. Job ID: [id number]
[2020-03-20] MEDS: Hydrocortisone Sod Succ/PF 100 mg/2 ml Vial IVP SCH ×3 (00:28→20:44)
[2020-03-20 05:33] LABS: #Lymphocytes 1.5 thou/uL (1.20-3.40); #Monocytes 0.5 thou/uL (0.11-0.59); #Neutrophils 24.4 thou/uL (1.40-6.50); %Eosinophils 0.1 % (0.0-10.0); %Lymphocytes 5.8 % (21.0-51.0); %Monocytes 1.7 % (0.0-10.0); %Neutrophils 92.4 % (42.0-75.0); Hemoglobin 10.5 g/dL (14.0-18.0); Mean Corpuscular HGB CONC 33.1 g/dL (32.0-36.0); Mean Corpuscular Hemoglobin 32.8 pg (27.0-31.0); Mean Corpuscular Volume 99.1 fL (78.0-98.0); Platelet Count 256 thou/uL (130-400); RBC Distribution Width 12.3 % (11.5-14.5); Red Blood Cell (RBC) Count 3.18 mill/uL (4.70-6.10); White Blood Cell (WBC) Count 26.4 thou/uL (4.8-10.8)
[2020-03-20 05:51] LABS: Anion Gap 13 mmol/L (10-20); BUN (Urea Nitrogen) 18 mg/dL (8.4-25.7); Calc. Creatinine Clearance 125 mL/min (70-130); Calcium 8.3 mg/dL (7.8-10.44); Carbon Dioxide 25 mmol/L (23-31); Chloride 104 mmol/L (98-107); Estimated GFR-MDRD Greater than 90; Glucose 136 mg/dL (80-115); Sodium 139 mmol/L (136-145)
[2020-03-20 05:57] LABS: Potassium 2.8 mmol/L (3.5-5.1)
[2020-03-20] MEDS: Enoxaparin Sodium 40 MG/0.4 ML SYRINGE SC SCH (08:00)
[2020-03-20] MEDS: Potassium Chloride 20 MEQ in Premix Bag 1 BAG IVPB SCH ×2 (08:01→10:18)
[2020-03-20] MEDS: Acetaminophen 325 MG TAB PO PRN ×2 (10:18→14:27)
[2020-03-20 10:22] LABS: Vancomycin, Trough 16.1 ug/mL
--- NOTE | 2020-03-20 11:13 | PRG ---
DATE OF SERVICE: 03/20/2020 SUBJECTIVE: A 64-year-old gentleman, unfortunate quadriplegic patient, presented with sepsis, respiratory failure. He is extubated. He is better. He is still weak. OBJECTIVE: VITAL SIGNS: Temperature 97, pulse 55, respiratory rate 18, saturations are 100% on room air, blood pressure 159/86. CHEST: Anterior rhonchi. CARDIAC: Normal S1 and S2. No gallops. ABDOMEN: No masses. LABORATORY DATA: White count 26,000. He has MRSA in urine and blood, and Enterococcus faecalis. ASSESSMENT AND PLAN: Septic shock; urinary tract infection; quadriplegic; respiratory failure, resolved. He was on stress doses of hydrocortisone, to which blood pressure is much improved. I am going to taper and discontinue the hydrocortisone a few days since his blood pressure is resolved. Pulmonary/Critical Care is still following. Job ID: [id number]
[2020-03-20] MEDS: Vancomycin HCl 1.25 GM in Sodium Chloride 0.9% 250 ML 250 ML IVPB SCH ×2 (11:15→20:43)
[2020-03-20 13:40] LABS: Potassium 3.1 mmol/L (3.5-5.1)
--- NOTE | 2020-03-20 14:52 | PDOC.HOSPP ---
- Subjective Encounter Date: 03/20/20 Encounter Time: 12:30 Subjective: Patient seen for follow-up regarding bacteremia. He is conversant, reports feeling better. - Objective Vital Signs & Weight: Vital Signs (12 hours) Temp Pulse Resp BP Pulse Ox 03/20/20 12:33 98 03/20/20 11:49 97.5 F L 53 L 18 167/86 H 98 03/20/20 07:56 97.5 F L 55 L 18 159/86 H 100 Weight Admit Weight 157 lb 13.616 oz Weight 159 lb 14.4 oz Most Recent Monitor Data Heart Rate from ECG 52 NIBP 133/70 NIBP BP-Mean 101 Respiration from ECG 10 SpO2 100 I&O: 03/19/20 03/20/20 03/21/20 06:59 06:59 06:59 Intake Total 2598 980 Output Total 1705 1920 Balance 893 -940 Result Diagrams: 03/20/20 05:20 03/20/20 Unknown Additional Labs: I reviewed patient's labs and MAR Hospitalist ROS - Review of Systems Constitutional: denies: fever, chills, sweats, weakness, malaise Cardiovascular: denies: chest pain, palpitations, orthopnea, paroxysmal noc. dyspnea, edema, light headedness - Medication Medications: Active Medications Generic Name Dose Route Start Last Admin Trade Name Freq PRN Reason Stop Dose Admin Acetaminophen 650 mg 03/17/20 09:42 03/20/20 03:50 Acetaminophen 650 Mg Suppository [place] 650 mg Q4H PRN Administration Headache/Fever/Mild Pain (1-3) Acetaminophen 650 mg 03/20/20 03:41 03/20/20 14:27 Acetaminophen 325 Mg Tab PO 650 mg Q4H PRN Administration Headache/Fever/MILD Pain 1-3 Bisacodyl 10 mg 03/17/20 09:42 03/20/20 14:27 Bisacodyl 5 Mg Tab PO 10 mg DAILYPRN PRN Administration Constipation Enoxaparin Sodium 40 mg 03/18/20 09:00 03/20/20 08:00 Enoxaparin Sodium 40 Mg/0.4 Ml Syringe SC 40 mg 0900 JEF Administration Vancomycin HCl 1.25 gm/ Sodium 250 mls @ 166.667 mls/hr 03/18/20 22:00 03/20/20 11:15 Chloride IVPB 250 mls 1000,2200 JEF Administration Sodium Chloride 10 ml 03/20/20 09:00 03/20/20 08:02 Flush - Normal Saline 10 Ml Syringe IVF 10 ml Q12HR JEF Administration - Exam General Appearance: awake alert Eye: anicteric sclera ENT: moist mucosa Neck: supple Heart: RRR Respiratory: CTAB Gastrointestinal: soft Extremities: no cyanosis Skin: no rashes Psychiatric: normal affect, normal behavior Hosp A/P (1) Bacteremia Code(s): R78.81 - BACTEREMIA Status: Acute (2) UTI (urinary tract infection) Status: Acute (3) Acute respiratory failure Code(s): J96.00 - ACUTE RESPIRATORY FAILURE, UNSP W HYPOXIA OR HYPERCAPNIA Status: Acute (4) Quadriplegia Code(s): G82.50 - QUADRIPLEGIA, UNSPECIFIED Status: Chronic (5) Hyponatremia Code(s): E87.1 - HYPO-OSMOLALITY AND HYPONATREMIA Status: Resolved (6) Sepsis Code(s): A41.9 - SEPSIS, UNSPECIFIED ORGANISM Status: Resolved - Plan MRSA UTI, bacteremia from enterococcus faecalis and MRSA. Patient is on IV vancomycin and meropenem. ID consult pending. White count improved to 26,400. Hyponatremia resolved. Replace potassium. COVID-19 test negative.
[2020-03-21] MEDS: Acetaminophen 325 MG TAB PO PRN ×2 (00:37→11:00)
[2020-03-21 05:40] LABS: #Lymphocytes 2.4 thou/uL (1.20-3.40); #Monocytes 0.7 thou/uL (0.11-0.59); #Neutrophils 12.6 thou/uL (1.40-6.50); %Basophils 0.2 % (0.0-1.0); %Lymphocytes 15.1 % (21.0-51.0); %Monocytes 4.4 % (0.0-10.0); %Neutrophils 80.2 % (42.0-75.0); Hemoglobin 11.4 g/dL (14.0-18.0); Mean Corpuscular HGB CONC 33.2 g/dL (32.0-36.0); Mean Corpuscular Hemoglobin 32.6 pg (27.0-31.0); Mean Corpuscular Volume 98.2 fL (78.0-98.0); Mean Platelet Volume 8.4 fL (7.4-10.4); Platelet Count 289 thou/uL (130-400); RBC Distribution Width 12.2 % (11.5-14.5); Red Blood Cell (RBC) Count 3.51 mill/uL (4.70-6.10); White Blood Cell (WBC) Count 15.7 thou/uL (4.8-10.8)
[2020-03-21 06:05] LABS: Anion Gap 9 mmol/L (10-20); BUN (Urea Nitrogen) 17 mg/dL (8.4-25.7); Calc. Creatinine Clearance 131 mL/min (70-130); Calcium 8.8 mg/dL (7.8-10.44); Carbon Dioxide 32 mmol/L (23-31); Chloride 103 mmol/L (98-107); Estimated GFR-MDRD Greater than 90; Glucose 120 mg/dL (80-115); Potassium 3.1 mmol/L (3.5-5.1); Sodium 141 mmol/L (136-145)
[2020-03-21] MEDS: Enoxaparin Sodium 40 MG/0.4 ML SYRINGE SC SCH (09:07)
[2020-03-21] MEDS: Hydrocortisone Sod Succ/PF 100 mg/2 ml Vial IVP SCH ×2 (09:08→20:19)
[2020-03-21] MEDS: Vancomycin HCl 1.25 GM in Sodium Chloride 0.9% 250 ML 250 ML IVPB SCH ×2 (09:08→21:43)
--- NOTE | 2020-03-21 11:31 | PRG ---
DATE OF SERVICE: 03/21/2020 SUBJECTIVE: Desmond Galvan is a 64-year-old gentleman who is awake, alert, and responsive. He is quadriplegic from a previous injury. OBJECTIVE: VITAL SIGNS: Temperature 97, pulse 62, saturations 100% on room air, respiratory rate 16, blood pressure 136/75. CHEST: No wheezing, no crackles. CARDIAC: Normal S1, S2. No gallops. ASSESSMENT: Sepsis syndrome, hypertension, resolved, urinary tract infection, quadriplegia. PLAN: Continue present antibiotics as per Infectious Disease. Job ID: [id number]
--- NOTE | 2020-03-21 12:23 | PDOC.HOSPP ---
- Subjective Encounter Date: 03/21/20 Encounter Time: 07:00 Subjective: Patient seen in follow-up regarding bacteremia. More alert today, hoping to return to residential. - Objective Vital Signs & Weight: Vital Signs (12 hours) Temp Pulse Resp BP Pulse Ox 03/21/20 08:00 97.4 F L 62 16 136/75 100 Weight Admit Weight 157 lb 13.616 oz Weight 153 lb 11.2 oz Most Recent Monitor Data Heart Rate from ECG 52 NIBP 133/70 NIBP BP-Mean 101 Respiration from ECG 10 SpO2 100 I&O: 03/20/20 03/21/20 03/22/20 06:59 06:59 06:59 Intake Total 980 1100 Output Total 1920 1350 Balance -940 -250 Result Diagrams: 03/21/20 05:20 03/21/20 05:20 Additional Labs: I reviewed patient's labs and MAR Hospitalist ROS - Review of Systems Respiratory: denies: cough, dry, shortness of breath, hemoptysis, SOB with excertion, pleuritic pain, sputum, wheezing Cardiovascular: denies: chest pain, palpitations, orthopnea, paroxysmal noc. dyspnea, edema, light headedness - Medication Medications: Active Medications Generic Name Dose Route Start Last Admin Trade Name Freq PRN Reason Stop Dose Admin Acetaminophen 650 mg 03/17/20 09:42 03/20/20 03:50 Acetaminophen 650 Mg Suppository [place] 650 mg Q4H PRN Administration Headache/Fever/Mild Pain (1-3) Acetaminophen 650 mg 03/20/20 03:41 03/21/20 11:00 Acetaminophen 325 Mg Tab PO 650 mg Q4H PRN Administration Headache/Fever/MILD Pain 1-3 Bisacodyl 10 mg 03/17/20 09:42 03/20/20 14:27 Bisacodyl 5 Mg Tab PO 10 mg DAILYPRN PRN Administration Constipation Enoxaparin Sodium 40 mg 03/18/20 09:00 03/21/20 09:07 Enoxaparin Sodium 40 Mg/0.4 Ml Syringe SC 40 mg 09 JEF Administration Hydrocortisone Sodium Succinate 50 mg 03/20/20 21:00 03/21/20 09:08 Hydrocortisone Sod Succ/Pf 100 Mg/2 Ml Vial IVP 03/24/20 12:01 50 mg BID JEF Administration Vancomycin HCl 1.25 gm/ Sodium 250 mls @ 166.667 mls/hr 03/18/20 22:00 03/21/20 09:08 Chloride IVPB 250 mls 1000,2200 JEF Administration Ondansetron HCl 4 mg 03/17/20 09:42 03/21/20 00:34 Ondansetron Pf 4 Mg/2 Ml Vial IVP 4 mg Q6H PRN Administration Nausea/Vomiting Sodium Chloride 10 ml 03/20/20 09:00 03/21/20 09:08 Flush - Normal Saline 10 Ml Syringe IVF 10 ml Q12HR JEF Administration - Exam General Appearance: awake alert ENT: normocephalic atraumatic Neck: supple Heart: RRR Respiratory: CTAB Gastrointestinal: soft, non-tender Skin: no rashes Psychiatric: normal affect, normal behavior Hosp A/P (1) Bacteremia Code(s): R78.81 - BACTEREMIA Status: Acute (2) UTI (urinary tract infection) Status: Acute (3) Acute respiratory failure Code(s): J96.00 - ACUTE RESPIRATORY FAILURE, UNSP W HYPOXIA OR HYPERCAPNIA Status: Acute (4) Quadriplegia Code(s): G82.50 - QUADRIPLEGIA, UNSPECIFIED Status: Chronic (5) Hyponatremia Code(s): E87.1 - HYPO-OSMOLALITY AND HYPONATREMIA Status: Resolved (6) Sepsis Code(s): A41.9 - SEPSIS, UNSPECIFIED ORGANISM Status: Resolved - Plan MRSA UTI, bacteremia from enterococcus faecalis and MRSA. Presumptive Pseudo monas in blood culture as well. Patient is improving on intravenous vancomycin, will continue for a total of 2 weeks. Patient may need PICC line. Replace potassium. COVID-19 test negative. Resume aspirin and Flomax.
[2020-03-21] MEDS: Potassium Chloride 20 MEQ TAB PO SCH ×2 (13:10→16:07)
[2020-03-21] MEDS ORDERED: Haloperidol Lactate 5 MG/ML VIAL IM PRN (13:52)
[2020-03-21] MEDS: Aspirin 81 mg Enteric Coated Tablet PO SCH (20:19)
[2020-03-21 21:35] LABS: Vancomycin, Trough 23.8 ug/mL
[2020-03-22] MEDS: Vancomycin 1 GM in Premix Bag 1 BAG IVPB SCH ×2 (02:16→14:53)
[2020-03-22 05:39] LABS: Anion Gap 12 mmol/L (10-20); BUN (Urea Nitrogen) 23 mg/dL (8.4-25.7); Calc. Creatinine Clearance 95 mL/min (70-130); Calcium 8.8 mg/dL (7.8-10.44); Carbon Dioxide 29 mmol/L (23-31); Chloride 104 mmol/L (98-107); Estimated GFR-MDRD Greater than 90; Glucose 106 mg/dL (80-115); Potassium 3.7 mmol/L (3.5-5.1); Sodium 141 mmol/L (136-145)
[2020-03-22] MEDS: Acetaminophen 325 MG TAB PO PRN (05:59)
[2020-03-22 06:02] LABS: Band 2 % (5-11); Hemoglobin 11.7 g/dL (14.0-18.0); Hypochromia SLIGHT = 6-15 cells (100X) (0-5/hpf); Lymphocytes 13 % (21-51); MDiff Complete? YES; Mean Corpuscular HGB CONC 32.5 g/dL (32.0-36.0); Mean Corpuscular Hemoglobin 31.7 pg (27.0-31.0); Mean Corpuscular Volume 97.5 fL (78.0-98.0); Mean Platelet Volume 8.3 fL (7.4-10.4); Monocytes 7 % (0-10); Neutrophil 78 % (42-75); Platelet Count 318 thou/uL (130-400); Platelet Morphology Comment Appears Adequate; RBC Distribution Width 12.3 % (11.5-14.5); White Blood Cell (WBC) Count 19.4 thou/uL (4.8-10.8)
--- NOTE | 2020-03-22 10:26 | SPC ---
Exam: Rightupper extremity ultrasound guided PICC line HISTORY: TPN, IV antibiotics Exposure:0.6 minutes, 2097 mg/sq cm FINDINGS: Lumen: Singlelumen Trim length: 40 cm Distal tip:Caval atrial junction Catheter flushes and aspirates without difficulty TECHNIQUE: Consent obtained to perform a right upper extremity PICC line with ultrasound guidance. R ightarm was prepped and draped in a sterile fashion. 1% lidocaine, buffered with sodium bicarbonate was used for local anesthesia. Under ultrasound guidance, micropuncture needle was used to cannulate thebrachialvein. A 0.018 guidewire was advanced through the needle to level of the superior vena cava. Under fluoroscopy, the wire was further advanced into the inferior vena cava to document venous access. Wire was subsequently pulled back to thecaval atrial junction. Single lumen flushes and aspirates without difficulty. Patient tolerated the procedure well. No immediate or postprocedure com plications IMPRESSION: Successfulrightupper surgery PICC line placement with ultrasound guidance
--- NOTE | 2020-03-22 11:19 | PRG ---
DATE OF SERVICE: 03/22/2020 SUBJECTIVE: Desmond Galvan this morning is awake, alert, and responsive. OBJECTIVE: VITAL SIGNS: Temperature 98, pulse 60, respirations 16, saturations _96%on room air, blood pressure 150/65. CHEST: No wheezing. No crackles. CARDIAC: Normal S1 and S2. No gallops. ABDOMEN: No masses. ASSESSMENT AND PLAN: 1. Methicillin-resistant Staphylococcus aureus and Enterococcus sepsis. 2. c5 quad//paraplegic. Antibiotics as per Infectious Disease. He is much improved, still on stress dose of steroids for the next 2 days. Job ID: [id number] [id number]
[2020-03-22] MEDS: Tamsulosin HCl 0.4 MG CAP PO SCH (12:26)
[2020-03-22] MEDS: Enoxaparin Sodium 40 MG/0.4 ML SYRINGE SC SCH (12:26)
[2020-03-22] MEDS: Aspirin 81 mg Enteric Coated Tablet PO SCH ×2 (12:26→20:24)
[2020-03-22] MEDS: Hydrocortisone Sod Succ/PF 100 mg/2 ml Vial IVP SCH ×2 (12:27→20:24)
[2020-03-22 14:31] VITALS: BMI 22.7
--- NOTE | 2020-03-22 18:58 | PDOC.HOSPP ---
- Subjective Encounter Date: 03/22/20 Encounter Time: 18:56 Subjective: Patient seen for follow-up regarding bacteremia. He denies any chest pain. He denies any fevers. - Objective Vital Signs & Weight: Vital Signs (12 hours) Temp Pulse Resp BP Pulse Ox 03/22/20 08:00 98.0 F 68 16 115/65 100 Weight Admit Weight 157 lb 13.616 oz Weight 158 lb 7 oz Most Recent Monitor Data Heart Rate from ECG 52 NIBP 133/70 NIBP BP-Mean 101 Respiration from ECG 10 SpO2 100 I&O: 03/21/20 03/22/20 03/23/20 06:59 06:59 06:59 Intake Total 1100 2060 Output Total 1350 Balance -250 2060 Result Diagrams: 03/22/20 05:07 03/22/20 05:07 Additional Labs: I reviewed patient's labs and MAR Hospitalist ROS - Review of Systems Gastrointestinal: denies: nausea, vomiting, abdominal pain, diarrhea, constipation, melena, hematochezia Genitourinary: denies: dysuria, frequency, incontinence, hematuria, retention - Medication Medications: Active Medications Generic Name Dose Route Start Last Admin Trade Name Freq PRN Reason Stop Dose Admin Acetaminophen 650 mg 03/17/20 09:42 03/20/20 03:50 Acetaminophen 650 Mg Suppository NC 650 mg Q4H PRN Administration Headache/Fever/Mild Pain (1-3) Acetaminophen 650 mg 03/20/20 03:41 03/22/20 05:59 Acetaminophen 325 Mg Tab PO 650 mg Q4H PRN Administration Headache/Fever/MILD Pain 1-3 Aspirin 81 mg 03/21/20 21:00 03/22/20 12:26 Aspirin 81 Mg Enteric Coated Tablet PO 81 mg BID JEF Administration Bisacodyl 10 mg 03/17/20 09:42 03/20/20 14:27 Bisacodyl 5 Mg Tab PO 10 mg DAILYPRN PRN Administration Constipation Enoxaparin Sodium 40 mg 03/18/20 09:00 03/22/20 12:26 Enoxaparin Sodium 40 Mg/0.4 Ml Syringe SC 40 mg 0900 JEF Administration Haloperidol Lactate 5 mg 03/21/20 13:52 03/21/20 14:14 Haloperidol Lactate 5 Mg/Ml Vial IM 5 mg Q4H PRN Administration Agitation Hydrocortisone Sodium Succinate 50 mg 03/20/20 21:00 03/22/20 12:27 Hydrocortisone Sod Succ/Pf 100 Mg/2 Ml Vial IVP 03/24/20 12:01 50 mg BID JEF Administration Vancomycin HCl 1 gm/ Device 200 mls @ 200 mls/hr 03/22/20 02:00 03/22/20 14:53 IVPB 200 mls 0200,1400 JEF Administration Sodium Chloride 10 ml 03/20/20 09:00 03/22/20 12:27 Flush - Normal Saline 10 Ml Syringe IVF 10 ml Q12HR JEF Administration Sodium Chloride 10 ml 03/20/20 06:45 03/22/20 02:16 Flush - Normal Saline 10 Ml Syringe IVF 10 ml PRN PRN Administration Saline Flush Tamsulosin HCl 0.4 mg 03/22/20 09:00 03/22/20 12:26 Tamsulosin Hcl 0.4 Mg Cap PO 0.4 mg DAILY JEF Administration - Exam General Appearance: awake alert Eye: anicteric sclera ENT: moist mucosa Heart: RRR Respiratory: CTAB Gastrointestinal: soft Skin: no rashes Psychiatric: normal affect Hosp A/P (1) Bacteremia Code(s): R78.81 - BACTEREMIA Status: Acute (2) UTI (urinary tract infection) Status: Acute (3) Acute respiratory failure Code(s): J96.00 - ACUTE RESPIRATORY FAILURE, UNSP W HYPOXIA OR HYPERCAPNIA Status: Acute (4) Quadriplegia Code(s): G82.50 - QUADRIPLEGIA, UNSPECIFIED Status: Chronic (5) Hyponatremia Code(s): E87.1 - HYPO-OSMOLALITY AND HYPONATREMIA Status: Resolved (6) Sepsis Code(s): A41.9 - SEPSIS, UNSPECIFIED ORGANISM Status: Resolved - Plan Continue intravenous vancomycin for MRSA UTI, bacteremia from enterococcus faecalis and MRSA. PICC line placed. COVID-19 test negative. Resume aspirin and Flomax. I had a lengthy discussion with patient regarding disposition. Earlier today he did not want to return to his prison. After discussed various options, he agreed to return to prison and plan for another place at the time of discharge from the prison.
[2020-03-23] MEDS: Vancomycin 1 GM in Premix Bag 1 BAG IVPB SCH ×2 (01:43→15:38)
[2020-03-23] MEDS: Acetaminophen 325 MG TAB PO PRN (02:29)
[2020-03-23 05:40] LABS: #Lymphocytes 2.9 thou/uL (1.20-3.40); #Monocytes 0.8 thou/uL (0.11-0.59); %Basophils 0.2 % (0.0-1.0); %Eosinophils 0.2 % (0.0-10.0); %Lymphocytes 16.1 % (21.0-51.0); %Monocytes 4.7 % (0.0-10.0); %Neutrophils 78.8 % (42.0-75.0); Hemoglobin 10.9 g/dL (14.0-18.0); Mean Corpuscular HGB CONC 33.3 g/dL (32.0-36.0); Mean Corpuscular Hemoglobin 33.2 pg (27.0-31.0); Mean Corpuscular Volume 99.7 fL (78.0-98.0); Platelet Count 299 thou/uL (130-400); RBC Distribution Width 12.3 % (11.5-14.5); Red Blood Cell (RBC) Count 3.28 mill/uL (4.70-6.10); White Blood Cell (WBC) Count 17.8 thou/uL (4.8-10.8)
[2020-03-23 05:56] LABS: Anion Gap 11 mmol/L (10-20); BUN (Urea Nitrogen) 24 mg/dL (8.4-25.7); Calc. Creatinine Clearance 100 mL/min (70-130); Calcium 8.6 mg/dL (7.8-10.44); Carbon Dioxide 31 mmol/L (23-31); Chloride 103 mmol/L (98-107); Estimated GFR-MDRD Greater than 90; Glucose 110 mg/dL (80-115); Potassium 3.2 mmol/L (3.5-5.1); Sodium 142 mmol/L (136-145)
[2020-03-23 08:38] VITALS: BP 132/72; TEMP 97.4
[2020-03-23] MEDS ORDERED: Potassium Chloride 20 MEQ TAB PO SCH (10:00)
--- NOTE | 2020-03-23 10:58 | PRG ---
DATE OF SERVICE: 03/23/2020 SUBJECTIVE: Desmond Galvan this morning is doing better. OBJECTIVE: VITAL SIGNS: His temperature is 97, pulse 72, his blood pressure is stabilized at 130/72, respiratory rate 18. CHEST: No wheezing. No crackles. CARDIAC: Normal S1 and S1. ASSESSMENT AND PLAN: Paraplegic, gram positive sepsis, methicillin-resistant Staphylococcus aureus much improved. His steroids are going to be discontinued in another day. Continue antibiotics. Pulmonary is going to follow at a distance. Please call if needed. Job ID: [id number]
[2020-03-23] MEDS: Tamsulosin HCl 0.4 MG CAP PO SCH (11:45)
[2020-03-23] MEDS: Aspirin 81 mg Enteric Coated Tablet PO SCH (11:45)
[2020-03-23] MEDS: Hydrocortisone Sod Succ/PF 100 mg/2 ml Vial IVP SCH (11:46)
[2020-03-23] MEDS: Enoxaparin Sodium 40 MG/0.4 ML SYRINGE SC SCH (11:46)
[2020-03-23 13:46] LABS: Vancomycin, Trough 24.1 ug/mL
--- NOTE | 2020-03-23 14:03 | PDOC.PALCO ---
Palliative Care Consult - Consult Details Requesting Physician: Dr Rivera Reason for Consult: goals of care, complex decision-making - Pertinent HPI 64 year old male who is a resident at [facility] secondary to being a total assist for all ADL. 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 Baseline is bedbound, awake, carries on conversations, however is confused. He was found unresponsive and EMS was called, transferred to [facility] emergency room. Found to be tachycardic, febrile, and tachypneic. Intubated to maintain safe airway, admitted to CCU. Sepsis, UTI. Subsequent extubation and transfer to floor. - Social History Smoking: no tobacco exposure Alcohol Use: none Drug Use History: none Living Situation: assisted resident - Medications MAR Reviewed: Yes - Allergies Allergies/Adverse Reactions: Allergies Allergy/AdvReac Type Severity Reaction Status Date / Time No Known Allergies Allergy Verified 01/21/20 23:40 - Subjective Awake, converses easily. However poor historian, unable to give accurate history. Mild confusion but redirectable. - ROS Constitutional: weakness ENT: alteration in dentition, other (Denies difficulity swallowing, ) Respiratory: dry cough Cardiology: other (Negative for palpitations, chest pain) Musculoskeletal: limited mobility Neurological: numbness, weakness, other (quadriplegic) Skin: dry, flakey Psychological: memory changes - Objective Vital Signs: Vital Signs - Most Recent Temp Pulse Resp BP Pulse Ox 97.4 F L 72 18 132/72 100 03/23/20 08:00 03/23/20 08:00 03/23/20 08:00 03/23/20 08:00 03/23/20 08:00 Palliative Performance Scale: 30 - Physical Exam Constitutional: cachectic, ill appearing HEENT: EOMI, moist MMs, poor dentition Respiratory: no rhonchi, no wheezing, unlabored breathing Cardiovascular: RRR, diminished peripheral pulses Gastrointestinal: soft, non-tender Genitourinary: antunez catheter Musculoskeletal: edema present, diffuse muscle atrophy Deviation from normal: Quadriplegia Skin: cap refill <2 seconds, fragile Deviation from normal: Alert and oriented two person, place, poor memory recall. - Problem List (1) Palliative care encounter Code(s): Z51.5 - ENCOUNTER FOR PALLIATIVE CARE Current Visit: Yes Status: Acute (2) Bacteremia Code(s): R78.81 - BACTEREMIA Current Visit: Yes Status: Acute (3) Quadriplegia Code(s): G82.50 - QUADRIPLEGIA, UNSPECIFIED Current Visit: Yes Status: Chronic - Plan/Recommendations Plan: Patient states he "wants to go live in his mothers house", initially he had forgotten his mother had . When asked where he has recently lived he could not recall the name of the assisted, and relayed that he has been there "maybe two weeks". 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 His speech is soft and slurred, he converses. Concern is if he remains fully decisional related to medical decisions. Voiding trial was discussed, however uncertain if completed. Antunez removed today without difficulty. Palliative Care discussed with his children his transition back to the assisted facility and potential complications necessitating readmission to the hospital related to Quadriplegia. Discussed revisiting [facility] should decline continue once he is at [facility]. Emotional support offered. Please also refer to Palliative Care notes in note section. [50] minutes spent on this encounter with >50% of the time in counseling and coordination of care. Thank you for this very appropriate consult.
[2020-03-23] MEDS ORDERED: Vancomycin HCl 750 MG in Sodium Chloride 0.9% 250 ML 250 ML IVPB SCH (16:00)
[2020-03-23] MEDS ORDERED: Melatonin 3 MG TAB PO PRN (21:00)
[2020-03-23] MEDS ORDERED: Pregabalin 75 MG CAP PO SCH (21:00)
[2020-03-23] MEDS ORDERED: Midodrine HCl 5 MG TAB PO SCH (21:00)
[2020-03-23] MEDS ORDERED: Famotidine 20 MG TAB PO SCH (21:00)
--- NOTE | 2020-03-24 06:37 | DIS ---
DATE OF ADMISSION: 03/17/2020 DATE OF DISCHARGE: 03/23/2020 PRIMARY CARE PROVIDER: Dr. Saúl Ernst. DISCHARGE DIAGNOSES: 1. Septic shock. 2. Methicillin-resistant Staphylococcus aureus and Enterococcus urinary tract infection. 3. Bacteremia with Enterococcus faecalis and methicillin-resistant Staphylococcus aureus. 4. Hyponatremia. 5. Acute respiratory failure. 6. COVID test negative. 7. Hypokalemia. CONDITION OF THE PATIENT ON THE DAY OF DISCHARGE: Stable. I assessed Mr. Galvan on the day of discharge. He denies any chest pain or shortness of breath. Vital signs are stable. S1 and S2 are heard, regular. Lungs are clear to auscultation bilaterally. DISCHARGE MEDICATIONS: He has been advised to continue vancomycin 1 g intravenously two times a day for 7 days, levels to be checked at the [facility] and dosing adjusted. Otherwise, no change was made to his pre-admission home medications. CONSULTATIONS DURING THIS HOSPITALIZATION: Pulmonary and Critical Care Medicine, Dr. Hoyos; Infectious Diseases, Dr. Ayala. HOSPITAL COURSE: Mr. Galvan is a pleasant 64-year-old gentleman who was admitted to [facility] on March 17, 2020 for septic shock. Please refer to my history and physical note, dated March 17, 2020, for further details. He was intubated and mechanically ventilated and treated with vasopressors and intravenous antibiotics in the critical care unit. He was subsequently extubated. He was seen by Pulmonary and Critical Care Medicine as well as Infectious Disease Services. CT scan of the abdomen and pelvis on March 19, 2020, did not show any renal or ureteral calculi. His urine culture grew methicillin-resistant Staphylococcus aureus and presumptive Enterococcus species as well as presumptive Pseudomonas aeruginosa. 2/2 blood cultures grew Enterococcus faecalis and MRSA. Repeat blood cultures were drawn on March 20. Preliminary reports indicated no growth at the time of this dictation. He is advised to follow up with primary care provider for final reports on those cultures. Infectious Disease Service recommended a total of two weeks of antibiotics. If the blood cultures from March 20 remain positive, the duration of therapy has to be extended. He had a PICC line placed. He is being discharged back to [facility]. Many thanks for allowing me to participate in your patient's care. Please feel free to contact me with any questions or concerns. POST-ACUTE CARE FOLLOWUP: With primary care provider in 3 days and with Infectious Disease Service in 2 weeks if needed. DIET: Regular. ACTIVITY: As tolerated. DISCHARGE DESTINATION: [facility]. TIME SPENT: Total amount of time spent coordinating this discharge: 32 minutes. Job ID: [id number]
--- NOTE | 2020-03-27 18:14 | PQF ---
Dear : Saúl Rivera Date 03/28/20 Please exercise your independent, professional judgment in responding to the clarification form. Clinical indicators are provided on the bottom of this form for your review Can you please further clarify the etiology of UTI? Please check appropriate box(es): [ x ] UTI please specify if due to or related to (as applicable): [ x] Indwelling catheter [ ] Self-catheterization [ ] Suprapubic catheter [ ] Unable to determine etiology [ ] Other diagnosis please specify [ ] Unable to determine Physician Signature: Date/Time: For continuity of documentation, please document condition throughout progress notes and discharge summary. Thank You. o be completed by CDI/Coding staff for physician review: Present Clinical Indicators - Signs / Symptoms / Labs Results and Location in Medical Record [ x ] Altered mental status H and P pg.1 [ x ] BP 87/54, Pulse 115, Respi 12, Tempo 101.2 H and P pg.2 [ x ] Septic shock H and P pg.4 [ x ] Evidence of infection appears to be in UTI H and P pg.5 [ x ] MRSA bacteremia PN 9 pg.1 [ x ] This is presumed due to indwelling antunez catheter without an obvious alternative site PN 03/18 pg.1 [ x ] Urine and blood cultures both positive for MRSA PN 03/18 pg.1 [ x ] Urosepsis associated with antunez catheterization Present Risk Factors Results and Location in Medical Record [ x ] A 64 years old H and P pg.1 [ x ] Quadriplegia H and P pg.1 [ x ] Bacteremia, Urosepsis Consult pg.1 Dr. Ayala [ x ] Septic shock DS pg.1 [ x ] Acute respiratory failure DS pg.1 Present Treatments Results and Location in Medical Record [ x ] Urology Consult 03/17 Dr. Ley [ x ] Infectious Consult Dr. Ayala 03/19 [ x ] Abdomen pelvis CT 03/19 [ x ] Antunez catheter removal Consult pg.2 Dr. ayala [ x ] PICC line insertion 03/22 [ x ] IV antibiotics MAR [ x ] Blood culture Microbiology 03/17 [ x ] Urine Culture Microbiology 03/17 [ x ] IV Antibiotics MAR CDS/Questioned Documents Examiner Signature: Jeff Ross Phone #: ext [phone] Date 03/28/20 This is a permanent part of the Medical Record [facility]
== END 2020-03-23 15:50 | DRG 698 ==
LOC: ERS 08:13 → CCU 08:43 → ONC 03-19 11:48
PROVIDERS: ADMIT Internal Medicine; ATTEND Internal Medicine
PROC: 0BH17EZ Insertion of Endotracheal Airway into Trachea, Via Natural or Artificial Opening (ICD-10-PCS; principal; 2020-03-17)
PROC: 5A1945Z Respiratory Ventilation, 24-96 Consecutive Hours (ICD-10-PCS; 2020-03-17)
PROC: 3E033XZ Introduction of Vasopressor into Peripheral Vein, Percutaneous Approach (ICD-10-PCS; 2020-03-17)
PROC: 0TPBX0Z Removal of Drainage Device from Bladder, External Approach (ICD-10-PCS; 2020-03-19)
PROC: 02HV33Z Insertion of Infusion Device into Superior Vena Cava, Percutaneous Approach (ICD-10-PCS; 2020-03-22)
PROC: B548ZZA Ultrasonography of Superior Vena Cava, Guidance (ICD-10-PCS; 2020-03-22)
DX: T83.511A Infection and inflammatory reaction due to indwelling urethral catheter, initial encounter (principal); A41.02 Sepsis due to Methicillin resistant Staphylococcus aureus; R65.21 Severe sepsis with septic shock; G82.53 Quadriplegia, C5-C7 complete; A41.81 Sepsis due to Enterococcus; J96.00 Acute respiratory failure, unspecified whether with hypoxia or hypercapnia; E87.1 Hypo-osmolality and hyponatremia; R64 Cachexia; N39.0 Urinary tract infection, site not specified; Z20.828 Contact with and (suspected) exposure to other viral communicable diseases; Z51.5 Encounter for palliative care; Y84.6 Urinary catheterization as the cause of abnormal reaction of the patient, or of later complication, without mention of misadventure at the time of the procedure; Z68.21 Body mass index [BMI] 21.0-21.9, adult
CPT/HCPCS: 31500; 36415; 36556; 36569; 70450; 71045; 74176; 80048; 80053; 80202; 81003; 81015; 82533; 82805; 83605; 85025; 87040; 87077; 87086; 87149; 87186; 93005; 94002; 94003; 96365; 96366; 96367; 96368; 96375; 99292; C1751; J0171; J0696; J1630; J1644; J1650; J1720; J2185; J2405; J3010; J3370; J3480; J3490; J7050; P9045; U0002